=== PATIENT | female | born 1990 | race Caucasian/White ===

== ENCOUNTER 2022-09-09 11:28 | Emergency (ER) | payer MEDICAID ==
[~2022-09-09] VITALS: Ht 165.1 cm; Wt 77.3 kg
[~2022-09-09 11:28] MED LIST: FLO0.4C PO; HYT1T PO; IBUP-1986 PO; PANT-47 PO; ZOF4T PO
[2022-09-09 11:45] VITALS: BP 137/86
[2022-09-09] MEDS ORDERED: LORazepam 1 MG tablet PO ONE (15:15)
[2022-09-09] MEDS ORDERED: LORA-269 PO (15:22)
== END 2022-09-09 15:34 | disposition home or self-care (01) ==
LOC: ER 11:28
DX: F41.9 Anxiety disorder, unspecified (principal); G89.29 Other chronic pain; M54.9 Dorsalgia, unspecified; F12.10 Cannabis abuse, uncomplicated; Z87.442 Personal history of urinary calculi; Z90.49 Acquired absence of other specified parts of digestive tract; Z88.8 Allergy status to other drugs, medicaments and biological substances; Z79.899 Other long term (current) drug therapy; Z79.1 Long term (current) use of non-steroidal anti-inflammatories (NSAID); Z79.2 Long term (current) use of antibiotics
CPT/HCPCS: 82948; 99284

== ENCOUNTER 2022-11-01 20:06 | Emergency (ER) | payer MEDICAID ==
[~2022-11-01] VITALS: Ht 165.1 cm; Wt 77.4 kg
[~2022-11-01 20:06] MED LIST changes: +LORA-269 PO
[2022-11-01 20:51] VITALS: TEMP 98.7
[2022-11-01 21:36] LABS: BASOPHILS # (AUTO) 0.1 X10'3 (0-0.2); BASOPHILS % (AUTO) 1.7 % (0-1); EOSINOPHILS % (AUTO) 0.1 % (0-6); HEMATOCRIT 50.8 % (35.0-45.0); HEMOGLOBIN 17.3 g/dl (12.0-16.0); LYMPHOCYTES # (AUTO) 1.3 X10'3 (1.1-4.8); LYMPHOCYTES % (AUTO) 15.4 % (21-51); MEAN CORPUSCULAR HEMOGLOBIN 36.4 PG (27.0-31.0); MEAN CORPUSCULAR VOLUME 106.9 FL (78-98); MEAN PLATELET VOLUME 9.2 FL (7.4-10.4); MONOCYTES # (AUTO) 0.7 X10'3 (0-0.9); MONOCYTES % (AUTO) 7.7 % (2-12); NEUTROPHILS # (AUTO) 6.5 X10'3 (1.8-7.7); NEUTROPHILS % (AUTO) 75.1 % (42-75); PLATELET COUNT 254 X10'3 (140-440); RED BLOOD COUNT 4.75 X10'6 (4.20-5.60); RED CELL DISTRIBUTION WIDTH 15.5 % (11.5-14.5); WHITE BLOOD COUNT 8.7 X10'3 (4.5-11.0)
[2022-11-01 21:36] LABS: BILIRUBIN,URINE SMALL (Neg); CLARITY,URINE SLIGHTLY CLOUDY (Clear); GLUCOSE, URINE NEGATIVE (Neg); KETONES,URINE >=80 mg/dl (Neg); LEUKOCYTE ESTERASE ,URINE NEGATIVE (Neg); NITRITES, URINE NEGATIVE (Neg); OCCULT BLOOD,URINE MODERATE (Neg); PH,URINE 5.5 (4.8-8.0); PROTEIN,URINE TRACE mg/dl (Neg); UROBILINOGEN,URINE 0.2 E.U/dL (0.2-1.0)
[2022-11-01 21:40] LABS: COLOR,URINE DARK YELLOW (Yellow); UA COLLECTION TYPE CLN CATCH MIDSTREAM
[2022-11-01 21:43] LABS: ALANINE AMINOTRANSFERASE 90 U/L (12-78); ALBUMIN 4.2 G/DL (3.4-5.0); ALKALINE PHOSPHATASE 132 IU/L (46-116); ANION GAP 18 (8-16); ASPARTATE AMINO TRANSFERASE 159 U/L (10-37); BILIRUBIN,TOTAL 1.9 MG/DL (0.1-1.0); BLOOD UREA NITROGEN 6 MG/DL (7-18); BUN/CREATININE RATIO 6.2 (10.0-20.0); CALCIUM 10.3 MG/DL (8.5-10.1); CHLORIDE 94 MMOL/L (99-107); CREATININE 0.97 MG/DL (0.40-0.90); GLUCOSE 108 MG/DL (70-104); POTASSIUM 3.5 MMOL/L (3.5-5.1); SODIUM 137 MMOL/L (135-145); TOTAL CARBON DIOXIDE 24.6 MMOL/L (24-32); TOTAL PROTEIN 8.4 G/DL (6.4-8.2); eCRCL 75 ML/MIN; eGFR 67 ML/MIN
[2022-11-01 21:50] LABS: BACTERIA,URINE 4+ /HPF (Neg); SQUAMOUS EPITHELIAL CELL,UR MODERATE /LPF (FEW)
--- NOTE | 2022-11-02 00:25 | NUR ---
PT STATED SHE HAS BEEN WAITING IN HER CAR. EDUCATED BY REGISTRATION TO STAY IN LOBBY
[2022-11-02 02:14] LABS: URINE HCG NEGATIVE (NEG)
[2022-11-02 04:09] VITALS: BP 133/97; PULSE 121; RESP 18; O2SAT 99
[2022-11-02] MEDS ORDERED: famotidine/PF 10 mg/ml inj IV ONE (04:10)
[2022-11-02] MEDS ORDERED: ondansetron/PF 4mg/2ml inj IV ONE (04:10)
[2022-11-02] MEDS ORDERED: dextrose 5%-normal saline 1,000 ML IV SCH (04:10)
[2022-11-02] MEDS ORDERED: normal saline 1000ML IV soln IVB ONE (04:10)
[2022-11-02] MEDS ORDERED: pantoprazole 40mg IV 80 MG in normal saline 100ml IV soln 100 ML IV ONE (04:10)
[2022-11-02] MEDS ORDERED: thiamine 100mg/ml 2ml inj. IV ONE (04:10)
[2022-11-02 04:34] LABS: ETHANOL < 10 MG/DL (<10); LIPASE 305 U/L (73-393)
[2022-11-02] MEDS ORDERED: pantoprazole 40MG/NS 100ML BAG 100 ML IV ONE ×2 (04:35→04:50)
[2022-11-02] MEDS ORDERED: ONDA8TAB13 PO (05:07)
[2022-11-02] MEDS ORDERED: FAMO-128 PO (05:07)
== END 2022-11-02 06:09 | disposition home or self-care (01) ==
LOC: ER 20:07
DX: K29.20 Alcoholic gastritis without bleeding (principal); F10.10 Alcohol abuse, uncomplicated; G89.29 Other chronic pain; F12.90 Cannabis use, unspecified, uncomplicated; Z87.442 Personal history of urinary calculi; Z72.89 Other problems related to lifestyle; Z90.49 Acquired absence of other specified parts of digestive tract; Z88.8 Allergy status to other drugs, medicaments and biological substances; Z79.899 Other long term (current) drug therapy; Y90.0 Blood alcohol level of less than 20 mg/100 ml
CPT/HCPCS: 36415; 80053; 80320; 81001; 81025; 83690; 85025; 87077; 87088; 87186; 93005; 96361; 96365; 96375; 99284; C9113; J2405; J3411; J3490; J7030; J7042

== ENCOUNTER 2023-05-22 07:00 | Emergency (ER) | payer MEDICAID, OTHER ==
[~2023-05-22] VITALS: Ht 165.1 cm; Wt 77.9 kg
[~2023-05-22 07:00] MED LIST changes: +FAMO-128 PO; +ONDA8TAB13 PO
[2023-05-22 07:53] LABS: ALANINE AMINOTRANSFERASE 43 U/L (12-78); ALBUMIN 4.1 G/DL (3.4-5.0); ALKALINE PHOSPHATASE 105 IU/L (46-116); AMYLASE 26 U/L (25-115); ANION GAP 20 (8-16); ASPARTATE AMINO TRANSFERASE 69 U/L (10-37); BASOPHILS # (AUTO) 0.1 X10'3 (0-0.2); BILIRUBIN,TOTAL 1.4 MG/DL (0.1-1.0); BLOOD UREA NITROGEN 13 MG/DL (7-18); BUN/CREATININE RATIO 14.3 (10.0-20.0); CALCIUM 10.1 MG/DL (8.5-10.1); CHLORIDE 95 MMOL/L (99-107); CREATININE 0.91 MG/DL (0.40-0.90); GLUCOSE 120 MG/DL (70-104); LIPASE 127 U/L (16-77); MEAN CORPUSCULAR HGB CONC 34.8 g/dL (33.0-36.5); POTASSIUM 3.7 MMOL/L (3.5-5.1); SODIUM 136 MMOL/L (135-145); TOTAL CARBON DIOXIDE 20.7 MMOL/L (24-32); TOTAL PROTEIN 8.2 G/DL (6.4-8.2); eCRCL 80 ML/MIN; eGFR 72 ML/MIN
[2023-05-22 07:55] LABS: EOSINOPHILS % (AUTO) 0.3 % (0-6); HEMATOCRIT 46.2 % (35.0-45.0); HEMOGLOBIN 16.1 g/dl (12.0-16.0); LYMPHOCYTES # (AUTO) 1.9 X10'3 (1.1-4.8); LYMPHOCYTES % (AUTO) 24.4 % (21-51); MEAN CORPUSCULAR VOLUME 103.3 FL (78-98); MEAN PLATELET VOLUME 9.5 FL (7.4-10.4); MONOCYTES # (AUTO) 0.9 X10'3 (0-0.9); MONOCYTES % (AUTO) 12.4 % (2-12); NEUTROPHILS # (AUTO) 4.7 X10'3 (1.8-7.7); NEUTROPHILS % (AUTO) 61.9 % (42-75); PLATELET COUNT 208 X10'3 (140-440); RED BLOOD COUNT 4.47 X10'6 (4.20-5.60); RED CELL DISTRIBUTION WIDTH 13.3 % (11.5-14.5); WHITE BLOOD COUNT 7.6 X10'3 (4.5-11.0)
[2023-05-22 08:12] LABS: URINE HCG NEGATIVE (NEG)
[2023-05-22 08:24] LABS: BILIRUBIN,URINE MODERATE (Neg); CLARITY,URINE CLOUDY (Clear); COLOR,URINE YELLOW (Yellow); GLUCOSE, URINE NEGATIVE (Neg); KETONES,URINE >=80 mg/dl (Neg); LEUKOCYTE ESTERASE ,URINE NEGATIVE (Neg); NITRITES, URINE NEGATIVE (Neg); OCCULT BLOOD,URINE NEGATIVE (Neg); PH,URINE 5.5 (4.8-8.0); PROTEIN,URINE 30 mg/dl (Neg)
[2023-05-22 08:53] LABS: UA COLLECTION TYPE CLN CATCH MIDSTREAM
[2023-05-22 08:54] LABS: SQUAMOUS EPITHELIAL CELL,UR MANY /LPF (FEW)
[2023-05-22 08:58] LABS: CAL OXALATE CRYSTALS 3+ /HPF (NEGATIVE); HYALINE CASTS 0-3 /LPF (NEGATIVE)
[2023-05-22 08:59] LABS: BACTERIA,URINE FEW /HPF (Neg); MUCUS STRANDS MANY /LPF (Neg); RBC,URINE NONE SEEN /HPF (0-2)
[2023-05-22] MEDS: normal saline 1000ml 1,000 ML IV SCH (09:42)
[2023-05-22] MEDS: pantoprazole 40MG/NS 100ML BAG 100 ML IV SCH (09:44)
[2023-05-22] MEDS: LORazepam 2 mg/ml vial IV ONE (09:44)
[2023-05-22 09:48] LABS: MAGNESIUM 1.8 MG/DL (1.5-2.4)
[2023-05-22 09:53] LABS: ETHANOL < 10 MG/DL (<10)
[2023-05-22] MEDS: morphine 4 MG/ML inj SYRINge IV ONE ×2 (10:00→12:25)
[2023-05-22 11:03] LABS: URINE AMPHETAMINE SCREEN NEGATIVE (Neg); URINE BARBITUATE SCREEN NEGATIVE (Neg); URINE BENZODIAZEPINES SCREEN NEGATIVE (Neg); URINE CANNABINOID SCREEN NEGATIVE (Neg); URINE COCAINE SCREEN NEGATIVE (Neg); URINE METHADONE SCREEN NEGATIVE (Neg); URINE OPIATE SCREEN POSITIVE (Neg); URINE PHENCYCLIDINE SCREEN NEGATIVE (Neg)
[2023-05-22] MEDS ORDERED: ONDA4TAB12 PO (12:27)
[2023-05-22] MEDS: normal saline 1000ml 1,000 ML IV ONE (13:02)
[2023-05-22 13:46] VITALS: BP 127/89; PULSE 90; RESP 16; TEMP 98.3; O2SAT 99
== END 2023-05-22 13:54 | disposition home or self-care (01) ==
LOC: ER 07:00
DX: K29.20 Alcoholic gastritis without bleeding (principal); F12.90 Cannabis use, unspecified, uncomplicated; Z88.8 Allergy status to other drugs, medicaments and biological substances; Z79.899 Other long term (current) drug therapy; Z79.1 Long term (current) use of non-steroidal anti-inflammatories (NSAID); Z98.890 Other specified postprocedural states
CPT/HCPCS: 36415; 80053; 80305; 80320; 81001; 81025; 82150; 83605; 83690; 83735; 85025; 96361; 96374; 96375; 99284; C9113; J2060; J2270; J7030

== ENCOUNTER 2023-08-09 06:27 | Inpatient (IN) | payer MEDICAID, OTHER ==
[~2023-08-09] VITALS: Ht 166.4 cm; Wt 86.7 kg
[~2023-08-09 06:27] MED LIST changes: +ONDA4TAB12 PO
[2023-08-09 06:50] LABS: BILIRUBIN,URINE NEGATIVE (Neg); CLARITY,URINE CLOUDY (Clear); COLOR,URINE YELLOW (Yellow); GLUCOSE, URINE NEGATIVE (Neg); KETONES,URINE >=80 mg/dl (Neg); LEUKOCYTE ESTERASE ,URINE NEGATIVE (Neg); NITRITES, URINE NEGATIVE (Neg); OCCULT BLOOD,URINE TRACE-INTACT (Neg); PH,URINE 5.5 (4.8-8.0); PROTEIN,URINE NEGATIVE (Neg); UROBILINOGEN,URINE 0.2 E.U/dL (0.2-1.0)
[2023-08-09 06:52] LABS: UA COLLECTION TYPE CLN CATCH MIDSTREAM
[2023-08-09 07:00] LABS: BACTERIA,URINE 1+ /HPF (Neg); MUCUS STRANDS NONE SEEN /LPF (Neg); RBC,URINE 0-2 /HPF (0-2); SQUAMOUS EPITHELIAL CELL,UR MANY /LPF (FEW); WBC,URINE 0-4 /HPF (0-4)
[2023-08-09 07:01] LABS: URINE HCG NEGATIVE (NEG)
[2023-08-09] MEDS: normal saline 1000ml 1,000 ML IV ONE (07:26)
[2023-08-09] MEDS: morphine 2 MG/ML inj. syringe IV ONE ×2 (07:34→09:06)
[2023-08-09] MEDS: ondansetron/PF 4mg/2ml inj IV ONE (07:34)
[2023-08-09] MEDS: pantoprazole 40 MG vial IV ONE (07:41)
[2023-08-09 07:51] LABS: BASOPHILS # (AUTO) 0.1 X10'3 (0-0.2); BASOPHILS % (AUTO) 0.6 % (0-1); EOSINOPHILS # (AUTO) 0.1 X10'3 (0-0.9); HEMATOCRIT 46.8 % (35.0-45.0); HEMOGLOBIN 15.8 g/dl (12.0-16.0); LYMPHOCYTES % (AUTO) 15.7 % (21-51); MEAN CORPUSCULAR HEMOGLOBIN 35.5 PG (27.0-31.0); MEAN CORPUSCULAR HGB CONC 33.8 g/dL (33.0-36.5); MEAN CORPUSCULAR VOLUME 104.8 FL (78-98); MEAN PLATELET VOLUME 9.4 FL (7.4-10.4); MONOCYTES % (AUTO) 7.9 % (2-12); NEUTROPHILS # (AUTO) 9.3 X10'3 (1.8-7.7); NEUTROPHILS % (AUTO) 74.8 % (42-75); PLATELET COUNT 249 X10'3 (140-440); RED BLOOD COUNT 4.46 X10'6 (4.20-5.60); RED CELL DISTRIBUTION WIDTH 13.8 % (11.5-14.5); WHITE BLOOD COUNT 12.5 X10'3 (4.5-11.0)
[2023-08-09] MEDS: LORazepam 1 MG tablet PO ONE (08:35)
[2023-08-09 08:54] LABS: ALANINE AMINOTRANSFERASE 30 U/L (12-78); ALBUMIN 3.4 G/DL (3.4-5.0); ALBUMIN/GLOBULIN RATIO 0.9 (1.1-1.5); ALKALINE PHOSPHATASE 98 IU/L (46-116); ANION GAP 12 (8-16); ASPARTATE AMINO TRANSFERASE 25 U/L (10-37); BILIRUBIN,TOTAL 1.2 MG/DL (0.1-1.0); BLOOD UREA NITROGEN 7 MG/DL (7-18); BUN/CREATININE RATIO 10.3 (10.0-20.0); CALCIUM 8.4 MG/DL (8.5-10.1); CHLORIDE 100 MMOL/L (99-107); CREATININE 0.68 MG/DL (0.40-0.90); GLUCOSE 90 MG/DL (70-104); POTASSIUM 4.5 MMOL/L (3.5-5.1); SODIUM 135 MMOL/L (135-145); TOTAL CARBON DIOXIDE 22.8 MMOL/L (24-32); TOTAL PROTEIN 7.1 G/DL (6.4-8.2); eCRCL 107 ML/MIN; eGFR > 90 ML/MIN
[2023-08-09 09:16] LABS: LIPASE > 375 U/L (16-77)
[2023-08-09] MEDS ORDERED: acetaminophen 325mg tablet PO PRN (10:00)
[2023-08-09] MEDS ORDERED: magnesium 4gm in 100ml NS 100 ML IV PRN (10:00)
[2023-08-09] MEDS ORDERED: magnesium 2GM in 50ml NS 50 ML IV PRN (10:00)
[2023-08-09] MEDS ORDERED: potassium Cl 40MEQ/1/2NS 520ml 520 ML IV PRN (10:00)
[2023-08-09] MEDS: normal saline 1000ml 1,000 ML IV SCH ×2 (10:00→10:32)
[2023-08-09] MEDS ORDERED: magnesium Cl slow-release 64mg tablet PO PRN (10:00)
[2023-08-09] MEDS ORDERED: mag hydrox/Alum hydrox/simeth 30ml oral suspension PO PRN (10:00)
[2023-08-09] MEDS ORDERED: potassium Cl 20 mEq SR tablet PO PRN ×2 (10:00)
[2023-08-09] MEDS: ondansetron/PF 4mg/2ml inj IV PRN (10:38)
[2023-08-09] MEDS ORDERED: haloperidol lactate 5mg/ml inj IM PRN (12:15)
[2023-08-09] MEDS: metoclopramide 5 mg/ml inj IV ONE (12:21)
[2023-08-09] MEDS: morphine 2 MG/ML inj. syringe IV PRN (12:53)
[2023-08-09] MEDS: thiamine 100mg/ml 2ml inj. IV ONE (12:54)
[2023-08-09 13:15] VITALS: BP 153/100; PULSE 87; RESP 22; TEMP 97.7; O2SAT 97
[2023-08-09] MEDS: HYDROcodone/acetaminophen 10/325mg tab PO PRN (14:37)
[2023-08-09] MEDS ORDERED: iohexol 300mg/ml 100ml inj. ONE (15:43)
[2023-08-09] MEDS: proCHLORperazine 10 MG/2 ml inj IV ONE (16:18)
[2023-08-09] MEDS ORDERED: PROP10TA10 PO (17:00)
[2023-08-09] MEDS: LORazepam 1 MG tablet PO PRN (17:28)
[2023-08-09] MEDS: HYDROmorphone 1 mg/ml syringe IV ONE (17:29)
[2023-08-09 18:00] VITALS: BP 173/105; PULSE 80; RESP 18; TEMP 98.6; O2SAT 98
[2023-08-09] MEDS ORDERED: cefepime 2g/NS 100ml ADVANTAGE 100 ML IV SCH (18:10)
[2023-08-09] MEDS ORDERED: piperacillin/tazobactam inj. 3.375 GM in NS 50ml IV SCH (19:00)
[2023-08-09 20:00] VITALS: RESP 18; O2SAT 98
[2023-08-09] MEDS ORDERED: metroNIDAZOLE-Flagyl 500mg/NS 100 ML IV SCH (20:00)
[2023-08-09] MEDS: K and/or MAG REPLACEMENT MC SCH (20:00)
[2023-08-09 22:00] VITALS: BP 156/104; PULSE 96; RESP 16; TEMP 97.5; O2SAT 99
[2023-08-09] MEDS ORDERED: proCHLORperazine 10 MG/2 ml inj IV PRN (22:10)
[2023-08-09] MEDS: HYDROmorphone 1 mg/ml syringe IV PRN (22:36)
[2023-08-09] MEDS: pantoprazole 40 MG vial IV SCH (23:00)
[2023-08-10] MEDS: piperacillin/tazobactam inj. 3.375 GM in NS 50ml IV SCH (03:47)
[2023-08-10 06:00] VITALS: BP 113/72; PULSE 103; RESP 16; TEMP 98.1; O2SAT 96
[2023-08-10 06:51] LABS: BASOPHILS # (AUTO) 0.1 X10'3 (0-0.2); BASOPHILS % (AUTO) 0.5 % (0-1); EOSINOPHILS % (AUTO) 0.2 % (0-6); HEMATOCRIT 40.8 % (35.0-45.0); HEMOGLOBIN 13.8 g/dl (12.0-16.0); LYMPHOCYTES # (AUTO) 1.1 X10'3 (1.1-4.8); LYMPHOCYTES % (AUTO) 9.8 % (21-51); MEAN CORPUSCULAR HEMOGLOBIN 35.4 PG (27.0-31.0); MEAN CORPUSCULAR HGB CONC 33.8 g/dL (33.0-36.5); MEAN CORPUSCULAR VOLUME 104.7 FL (78-98); MEAN PLATELET VOLUME 8.7 FL (7.4-10.4); MONOCYTES % (AUTO) 8.6 % (2-12); NEUTROPHILS # (AUTO) 9.3 X10'3 (1.8-7.7); NEUTROPHILS % (AUTO) 80.9 % (42-75); PLATELET COUNT 172 X10'3 (140-440); RED BLOOD COUNT 3.89 X10'6 (4.20-5.60); RED CELL DISTRIBUTION WIDTH 13.6 % (11.5-14.5); WHITE BLOOD COUNT 11.5 X10'3 (4.5-11.0)
[2023-08-10 07:00] LABS: INR 1.1 INR; PROTHROMBIN TIME 11.3 SECONDS (9.0-12.0)
[2023-08-10 07:12] LABS: ALBUMIN 2.9 G/DL (3.4-5.0); AMYLASE 42 U/L (25-115); ANION GAP 12 (8-16); BLOOD UREA NITROGEN 4 MG/DL (7-18); BUN/CREATININE RATIO 6.5 (10.0-20.0); CALCIUM 8.1 MG/DL (8.5-10.1); CHLORIDE 102 MMOL/L (99-107); CHOL/HDL RATIO 1.6 (0.00-4.99); CHOLESTEROL 143 MG/DL (0-200); CREATININE 0.62 MG/DL (0.40-0.90); GLUCOSE 106 MG/DL (70-104); HDL CHOLESTEROL 87 MG/DL (35-60); LDL CHOLESTEROL 45 MG/DL (50-100); LIPASE 170 U/L (16-77); MAGNESIUM 1.7 MG/DL (1.5-2.4); PHOSPHORUS 2.2 MG/DL (2.3-4.5); POTASSIUM 3.9 MMOL/L (3.5-5.1); SODIUM 134 MMOL/L (135-145); TOTAL CARBON DIOXIDE 20.5 MMOL/L (24-32); TRIGLYCERIDES 87 MG/DL (20-135); eCRCL 120 ML/MIN; eGFR > 90 ML/MIN
[2023-08-10] MEDS: multivitamins, therapeutics tablet PO SCH (09:34)
[2023-08-10] MEDS: thiamine 100mg tablet PO SCH (09:34)
[2023-08-10] MEDS: folic acid 1mg tablet PO SCH (09:35)
[2023-08-10] MEDS: enoxaparin 40mg/0.4ml syringe SUBCUT SCH (09:36)
[2023-08-10 10:11] LABS: URINE AMPHETAMINE SCREEN NEGATIVE (Neg); URINE BARBITUATE SCREEN NEGATIVE (Neg); URINE BENZODIAZEPINES SCREEN NEGATIVE (Neg); URINE CANNABINOID SCREEN NEGATIVE (Neg); URINE COCAINE SCREEN NEGATIVE (Neg); URINE METHADONE SCREEN NEGATIVE (Neg); URINE OPIATE SCREEN POSITIVE (Neg); URINE PHENCYCLIDINE SCREEN NEGATIVE (Neg)
[2023-08-10 11:00] VITALS: BP 146/99; PULSE 100; RESP 16; TEMP 97.6; O2SAT 99
[2023-08-10] MEDS ORDERED: HYDR-3965 PO (12:01)
[2023-08-10] MEDS ORDERED: MULT-1133 PO (14:12)
[2023-08-10] MEDS ORDERED: PANT-47 PO (14:12)
[2023-08-10] MEDS ORDERED: LACT1CAP26 PO (14:12)
[2023-08-13] MEDS ORDERED: thiamine 100mg tablet PO SCH (08:00)
[2023-08-13] MEDS ORDERED: LORazepam 1 MG tablet PO PRN (12:15)
[2023-08-14] MEDS ORDERED: folic acid 1mg tablet PO SCH (08:00)
== END 2023-08-10 16:00 | disposition home or self-care (01) | DRG 241 ==
LOC: ER 06:28 → ED HOLD 10:00 → ORTHO 4S 13:10
PROVIDERS: ADMIT Internal Medicine; ATTEND Internal Medicine
DX: K29.20 Alcoholic gastritis without bleeding (principal); K85.21 Alcohol induced acute pancreatitis with uninfected necrosis; F10.20 Alcohol dependence, uncomplicated; F12.90 Cannabis use, unspecified, uncomplicated; F41.9 Anxiety disorder, unspecified; G89.29 Other chronic pain; M54.9 Dorsalgia, unspecified; Z79.899 Other long term (current) drug therapy; Z88.8 Allergy status to other drugs, medicaments and biological substances; Z88.1 Allergy status to other antibiotic agents; Z90.49 Acquired absence of other specified parts of digestive tract
CPT/HCPCS: 36415; 74177; 80048; 80053; 80061; 80305; 81001; 81025; 82150; 83605; 83690; 83735; 84100; 84145; 85025; 85610; 87040; 87081; 96374; 96375; 99285; C9113; G0378; J0780; J1170; J1650; J2270; J2405; J2543; J2765; J3411; J3490; J7030; Q9967

== ENCOUNTER 2023-10-13 18:38 | Inpatient (IN) | payer MEDICAID ==
[~2023-10-13] VITALS: Ht 165.1 cm; Wt 90.0 kg
[2023-10-13] MEDS: folic acid 1mg/0.2ml inj IV ONE ×2 (08:10→21:34)
[~2023-10-13 18:38] MED LIST changes: -FAMO-128 PO; -FLO0.4C PO; -HYT1T PO; -IBUP-1986 PO; +LACT1CAP26 PO; -LORA-269 PO; +MULT-1133 PO; -ONDA4TAB12 PO; -ONDA8TAB13 PO; +PROP10TA10 PO; -ZOF4T PO
[2023-10-13] MEDS: ondansetron/PF 4mg/2ml inj IV ONE (19:50)
[2023-10-13 19:51] LABS: BASOPHILS # (AUTO) 0.1 X10'3 (0-0.2); BASOPHILS % (AUTO) 0.6 % (0-1); EOSINOPHILS # (AUTO) 0.1 X10'3 (0-0.9); EOSINOPHILS % (AUTO) 0.6 % (0-6); HEMATOCRIT 45.5 % (35.0-45.0); HEMOGLOBIN 15.5 g/dl (12.0-16.0); LYMPHOCYTES # (AUTO) 1.5 X10'3 (1.1-4.8); LYMPHOCYTES % (AUTO) 12.9 % (21-51); MEAN CORPUSCULAR HEMOGLOBIN 34.4 PG (27.0-31.0); MEAN PLATELET VOLUME 8.8 FL (7.4-10.4); MONOCYTES # (AUTO) 0.7 X10'3 (0-0.9); MONOCYTES % (AUTO) 5.9 % (2-12); NEUTROPHILS # (AUTO) 9.2 X10'3 (1.8-7.7); PLATELET COUNT 237 X10'3 (140-440); RED BLOOD COUNT 4.51 X10'6 (4.20-5.60); RED CELL DISTRIBUTION WIDTH 13.8 % (11.5-14.5); WHITE BLOOD COUNT 11.5 X10'3 (4.5-11.0)
[2023-10-13] MEDS: morphine 2 MG/ML inj. syringe IV ONE (19:51)
[2023-10-13] MEDS: normal saline 1000ML IV soln IVB ONE (19:53)
[2023-10-13 20:04] LABS: BILIRUBIN,URINE SMALL (Neg); CLARITY,URINE SLIGHTLY CLOUDY (Clear); COLOR,URINE YELLOW (Yellow); GLUCOSE, URINE NEGATIVE (Neg); KETONES,URINE >=80 mg/dl (Neg); LEUKOCYTE ESTERASE ,URINE NEGATIVE (Neg); NITRITES, URINE NEGATIVE (Neg); OCCULT BLOOD,URINE MODERATE (Neg); PROTEIN,URINE NEGATIVE (Neg); UROBILINOGEN,URINE 0.2 E.U/dL (0.2-1.0)
[2023-10-13 20:07] LABS: ALANINE AMINOTRANSFERASE 42 U/L (12-78); ALBUMIN 3.9 G/DL (3.4-5.0); ALKALINE PHOSPHATASE 115 IU/L (46-116); ANION GAP 14 (8-16); ASPARTATE AMINO TRANSFERASE 78 U/L (10-37); BILIRUBIN,TOTAL 1.5 MG/DL (0.1-1.0); BLOOD UREA NITROGEN 8 MG/DL (7-18); CALCIUM 8.8 MG/DL (8.5-10.1); CHLORIDE 100 MMOL/L (99-107); CREATININE 0.73 MG/DL (0.40-0.90); GLUCOSE 101 MG/DL (70-104); LIPASE 308 U/L (16-77); POTASSIUM 3.6 MMOL/L (3.5-5.1); SODIUM 136 MMOL/L (135-145); TOTAL CARBON DIOXIDE 21.7 MMOL/L (24-32); TOTAL PROTEIN 7.7 G/DL (6.4-8.2); eCRCL 100 ML/MIN; eGFR > 90 ML/MIN
[2023-10-13 20:11] LABS: URINE HCG NEGATIVE (NEG)
[2023-10-13] MEDS: LORazepam 2 mg/ml vial IV ONE (20:22)
[2023-10-13 20:26] LABS: UA COLLECTION TYPE VOIDED
[2023-10-13 20:33] LABS: WBC,URINE 0-4 /HPF (0-4)
[2023-10-13 20:34] LABS: BACTERIA,URINE FEW /HPF (Neg); SQUAMOUS EPITHELIAL CELL,UR FEW /LPF (FEW)
[2023-10-13] MEDS ORDERED: acetaminophen 325mg tablet PO PRN ×2 (21:00)
[2023-10-13] MEDS ORDERED: magnesium Cl slow-release 64mg tablet PO PRN (21:00)
[2023-10-13] MEDS ORDERED: potassium Cl 20 mEq SR tablet PO PRN ×2 (21:00)
[2023-10-13] MEDS ORDERED: HYDROcodone/acetaminophen 5mg/325mg tablet PO PRN (21:00)
[2023-10-13] MEDS ORDERED: magnesium sulf-water 4G/100mL 100 ML IV PRN (21:00)
[2023-10-13] MEDS ORDERED: mag hydrox/Alum hydrox/simeth 30ml oral suspension PO PRN (21:00)
[2023-10-13] MEDS ORDERED: haloperidol 5mg tablet PO PRN (21:10)
[2023-10-13] MEDS: HYDROcodone/acetaminophen 10/325mg tab PO PRN (21:30)
[2023-10-13] MEDS: normal saline 1000ml 1,000 ML IV SCH (21:36)
[2023-10-13] MEDS: pantoprazole 40 MG vial IV SCH (21:43)
[2023-10-13] MEDS: pantoprazole 40 MG vial IV ONE (21:45)
[2023-10-13] MEDS ORDERED: iohexol 300mg/ml 100ml inj. ONE (21:51)
[2023-10-13] MEDS ORDERED: FOLI0.4T14 PO (22:36)
[2023-10-14] MEDS: morphine 2 MG/ML inj. syringe IV PRN (00:53)
[2023-10-14] MEDS: ondansetron/PF 4mg/2ml inj IV PRN (00:54)
[2023-10-14 02:55] LABS: BASOPHILS % (AUTO) 0.5 % (0-1); EOSINOPHILS # (AUTO) 0.1 X10'3 (0-0.9); HEMATOCRIT 39.1 % (35.0-45.0); HEMOGLOBIN 13.2 g/dl (12.0-16.0); LYMPHOCYTES # (AUTO) 1.5 X10'3 (1.1-4.8); MEAN CORPUSCULAR HEMOGLOBIN 34.3 PG (27.0-31.0); MEAN CORPUSCULAR HGB CONC 33.8 g/dL (33.0-36.5); MEAN CORPUSCULAR VOLUME 101.3 FL (78-98); MEAN PLATELET VOLUME 8.8 FL (7.4-10.4); MONOCYTES # (AUTO) 0.6 X10'3 (0-0.9); MONOCYTES % (AUTO) 8.6 % (2-12); NEUTROPHILS # (AUTO) 5.1 X10'3 (1.8-7.7); NEUTROPHILS % (AUTO) 68.9 % (42-75); PLATELET COUNT 172 X10'3 (140-440); RED BLOOD COUNT 3.85 X10'6 (4.20-5.60); RED CELL DISTRIBUTION WIDTH 13.9 % (11.5-14.5); WHITE BLOOD COUNT 7.4 X10'3 (4.5-11.0)
[2023-10-14 03:04] LABS: INR 1.1 INR; PROTHROMBIN TIME 11.6 SECONDS (9.0-12.0)
[2023-10-14 03:12] LABS: ALANINE AMINOTRANSFERASE 32 U/L (12-78); ALBUMIN 3.1 G/DL (3.4-5.0); ALKALINE PHOSPHATASE 90 IU/L (46-116); AMYLASE 62 U/L (25-115); ANION GAP 10 (8-16); ASPARTATE AMINO TRANSFERASE 49 U/L (10-37); BILIRUBIN,TOTAL 1.5 MG/DL (0.1-1.0); BLOOD UREA NITROGEN 7 MG/DL (7-18); BUN/CREATININE RATIO 10.6 (10.0-20.0); CHLORIDE 103 MMOL/L (99-107); CHOL/HDL RATIO 1.6 (0.00-4.99); CHOLESTEROL 170 MG/DL (0-200); CREATININE 0.66 MG/DL (0.40-0.90); GLUCOSE 111 MG/DL (70-104); HDL CHOLESTEROL 107 MG/DL (35-60); LDL CHOLESTEROL 46 MG/DL (50-100); LIPASE 357 U/L (16-77); MAGNESIUM 1.3 MG/DL (1.5-2.4); PHOSPHORUS 3.3 MG/DL (2.3-4.5); POTASSIUM 3.5 MMOL/L (3.5-5.1); SODIUM 136 MMOL/L (135-145); TOTAL CARBON DIOXIDE 23.2 MMOL/L (24-32); TOTAL PROTEIN 6.2 G/DL (6.4-8.2); TRIGLYCERIDES 46 MG/DL (20-135); eCRCL 110 ML/MIN; eGFR > 90 ML/MIN
[2023-10-14] MEDS: HYDROmorphone inj. 0.5 MG/0.5 ML DISP.SYRIN IM ONE (04:01)
[2023-10-14] MEDS: HYDROmorphone inj. 0.5 MG/0.5 ML DISP.SYRIN IV ONE ×2 (04:03→05:53)
[2023-10-14] MEDS: K and/or MAG REPLACEMENT MC SCH (08:00)
[2023-10-14] MEDS: HYDROmorphone inj. 0.5 MG/0.5 ML DISP.SYRIN IV PRN (08:38)
[2023-10-14] MEDS: LORazepam 1 MG tablet PO PRN (08:38)
[2023-10-14] MEDS ORDERED: PANT40TA54 PO (08:59)
[2023-10-14] MEDS: thiamine 100mg/ml 2ml inj. IV ONE (09:45)
[2023-10-14] MEDS ORDERED: pantoprazole 40 MG vial IV ONE (09:45)
[2023-10-14] MEDS: thiamine 100mg/ml 2ml inj. IV SCH (10:01)
[2023-10-14] MEDS: folic acid 1mg/0.2ml inj IV SCH (10:05)
[2023-10-14] MEDS: magnesium sulf-water 2g/50mL 50 ML IV PRN (10:47)
[2023-10-14 17:45] VITALS: RESP 16
[2023-10-14] MEDS: dextrose 5%-normal saline 1,000 ML IV SCH (17:55)
[2023-10-14 18:00] VITALS: BP 154/106; PULSE 97; RESP 16; TEMP 97.1; O2SAT 99
[2023-10-14] MEDS ORDERED: LORazepam 2 mg/ml vial IV PRN (20:30)
[2023-10-14 22:00] VITALS: BP 157/101; PULSE 115; RESP 15; TEMP 98.5; O2SAT 100
[2023-10-15 06:00] VITALS: BP 144/96; PULSE 85; RESP 16; TEMP 97.6; O2SAT 99
[2023-10-15 07:36] LABS: BASOPHILS % (AUTO) 0.2 % (0-1); EOSINOPHILS % (AUTO) 0.3 % (0-6); HEMATOCRIT 40.4 % (35.0-45.0); HEMOGLOBIN 13.5 g/dl (12.0-16.0); LYMPHOCYTES # (AUTO) 0.9 X10'3 (1.1-4.8); LYMPHOCYTES % (AUTO) 12.3 % (21-51); MEAN CORPUSCULAR HEMOGLOBIN 34.4 PG (27.0-31.0); MEAN CORPUSCULAR HGB CONC 33.5 g/dL (33.0-36.5); MEAN CORPUSCULAR VOLUME 102.5 FL (78-98); MEAN PLATELET VOLUME 9.4 FL (7.4-10.4); MONOCYTES # (AUTO) 0.7 X10'3 (0-0.9); MONOCYTES % (AUTO) 9.7 % (2-12); NEUTROPHILS # (AUTO) 5.9 X10'3 (1.8-7.7); NEUTROPHILS % (AUTO) 77.5 % (42-75); PLATELET COUNT 167 X10'3 (140-440); RED BLOOD COUNT 3.94 X10'6 (4.20-5.60); WHITE BLOOD COUNT 7.7 X10'3 (4.5-11.0)
[2023-10-15 07:47] LABS: INR 1.1 INR; PROTHROMBIN TIME 11.7 SECONDS (9.0-12.0)
[2023-10-15 07:52] LABS: ALANINE AMINOTRANSFERASE 24 U/L (12-78); ALBUMIN/GLOBULIN RATIO 0.9 (1.1-1.5); ALKALINE PHOSPHATASE 82 IU/L (46-116); AMYLASE 37 U/L (25-115); ANION GAP 10 (8-16); ASPARTATE AMINO TRANSFERASE 24 U/L (10-37); BILIRUBIN,TOTAL 1.1 MG/DL (0.1-1.0); BLOOD UREA NITROGEN 2 MG/DL (7-18); BUN/CREATININE RATIO 3.3 (10.0-20.0); CALCIUM 8.4 MG/DL (8.5-10.1); CHLORIDE 102 MMOL/L (99-107); GLUCOSE 129 MG/DL (70-104); LIPASE 146 U/L (16-77); MAGNESIUM 1.7 MG/DL (1.5-2.4); PHOSPHORUS 2.4 MG/DL (2.3-4.5); POTASSIUM 3.4 MMOL/L (3.5-5.1); SODIUM 135 MMOL/L (135-145); TOTAL PROTEIN 6.5 G/DL (6.4-8.2); eCRCL 120 ML/MIN; eGFR > 90 ML/MIN
[2023-10-15 08:00] VITALS: RESP 16; O2SAT 99
[2023-10-15] MEDS ORDERED: MVI, adult No.4 with vit. K 10 ML in dextrose 5% water 500ml 500 ML IV SCH (08:00)
[2023-10-15] MEDS ORDERED: propranolol 10mg tablet PO PRN (08:25)
[2023-10-15] MEDS: potassium Cl 40MEQ/1/2NS 520ml 520 ML IV PRN (09:14)
[2023-10-15 10:00] VITALS: BP 145/99; PULSE 94; RESP 15; TEMP 97.7; O2SAT 98
[2023-10-15] MEDS ORDERED: THIA100T70 PO (12:52)
[2023-10-15] MEDS ORDERED: enoxaparin 40mg/0.4ml syringe SUBCUT SCH (20:00)
== END 2023-10-15 14:30 | disposition home or self-care (01) | DRG 282 ==
LOC: ER 18:39 → ED HOLD 21:03 → ORTHO 4S 10-14 11:02
PROVIDERS: ADMIT Student in an Organized Health Care Education/Training Program; ATTEND Family Medicine
PROC: BW2110Z Computerized Tomography (CT Scan) of Abdomen and Pelvis using Low Osmolar Contrast, Unenhanced and Enhanced (ICD-10-PCS; principal; 2023-10-13)
DX: K85.20 Alcohol induced acute pancreatitis without necrosis or infection (principal); F10.90 Alcohol use, unspecified, uncomplicated; F41.9 Anxiety disorder, unspecified; K29.20 Alcoholic gastritis without bleeding; Y90.9 Presence of alcohol in blood, level not specified; G89.29 Other chronic pain; M54.9 Dorsalgia, unspecified; Z87.442 Personal history of urinary calculi; Z90.49 Acquired absence of other specified parts of digestive tract; Z79.899 Other long term (current) drug therapy; Z88.1 Allergy status to other antibiotic agents; Z72.0 Tobacco use; Z71.6 Tobacco abuse counseling
CPT/HCPCS: 36415; 74177; 80053; 80061; 81001; 81025; 82150; 83690; 83735; 84100; 85025; 85610; 87040; 87081; 99285; G0378; J1170; J2060; J2270; J2405; J2470; J3411; J3480; J3490; J7030; J7042; Q9967

== ENCOUNTER 2023-12-14 03:18 | Emergency (ER) | payer MEDICAID ==
[~2023-12-14] VITALS: Ht 165.1 cm; Wt 92.7 kg
[~2023-12-14 03:18] MED LIST changes: +FOLI0.4T14 PO; -LACT1CAP26 PO; +PANT40TA54 PO; +THIA100T70 PO
[2023-12-14 03:19] VITALS: TEMP 98.6
[2023-12-14 03:48] LABS: URINE HCG POSITIVE (NEG)
[2023-12-14 04:03] LABS: BILIRUBIN,URINE NEGATIVE (Neg); CLARITY,URINE SLIGHTLY CLOUDY (Clear); COLOR,URINE AMBER (Yellow); GLUCOSE, URINE NEGATIVE (Neg); KETONES,URINE 15 mg/dl (Neg); LEUKOCYTE ESTERASE ,URINE NEGATIVE (Neg); NITRITES, URINE NEGATIVE (Neg); OCCULT BLOOD,URINE SMALL (Neg); PROTEIN,URINE NEGATIVE (Neg); UROBILINOGEN,URINE 0.2 E.U/dL (0.2-1.0)
[2023-12-14 04:08] LABS: ALANINE AMINOTRANSFERASE 38 U/L (12-78); ALBUMIN 3.6 G/DL (3.4-5.0); ALBUMIN/GLOBULIN RATIO 0.9 (1.1-1.5); ALKALINE PHOSPHATASE 116 IU/L (46-116); ANION GAP 14 (8-16); ASPARTATE AMINO TRANSFERASE 97 U/L (10-37); BILIRUBIN,TOTAL 0.9 MG/DL (0.1-1.0); BLOOD UREA NITROGEN 5 MG/DL (7-18); BUN/CREATININE RATIO 6.8 (10.0-20.0); CHLORIDE 102 MMOL/L (99-107); CREATININE 0.73 MG/DL (0.40-0.90); GLUCOSE 123 MG/DL (70-104); LIPASE 100 U/L (16-77); POTASSIUM 4.2 MMOL/L (3.5-5.1); SODIUM 137 MMOL/L (135-145); TOTAL CARBON DIOXIDE 21.3 MMOL/L (24-32); TOTAL PROTEIN 7.5 G/DL (6.4-8.2); eCRCL 99 ML/MIN; eGFR > 90 ML/MIN
[2023-12-14] MEDS: loperamide 2mg capsule PO ONE (04:19)
[2023-12-14] MEDS: ondansetron 4mg rapidly disintigrating tab PO ONE (04:19)
[2023-12-14 04:27] LABS: UA COLLECTION TYPE CLN CATCH MIDSTREAM
[2023-12-14 04:28] LABS: BACTERIA,URINE FEW /HPF (Neg); MUCUS STRANDS FEW /LPF (Neg); SQUAMOUS EPITHELIAL CELL,UR FEW /LPF (FEW); WBC,URINE 0-4 /HPF (0-4)
[2023-12-14 04:29] LABS: RBC,URINE 0-2 /HPF (0-2)
[2023-12-14] MEDS: normal saline 1000ML IV soln IVB ONE (05:06)
[2023-12-14 05:21] LABS: BASOPHILS # (AUTO) 0.1 X10'3 (0-0.2); BASOPHILS % (AUTO) 1.3 % (0-1); EOSINOPHILS # (AUTO) 0.1 X10'3 (0-0.9); EOSINOPHILS % (AUTO) 1.2 % (0-6); HEMATOCRIT 42.3 % (35.0-45.0); HEMOGLOBIN 14.7 g/dl (12.0-16.0); LYMPHOCYTES % (AUTO) 33.1 % (21-51); MEAN CORPUSCULAR HEMOGLOBIN 34.6 PG (27.0-31.0); MEAN CORPUSCULAR HGB CONC 34.7 g/dL (33.0-36.5); MEAN CORPUSCULAR VOLUME 99.9 FL (78-98); MONOCYTES # (AUTO) 0.4 X10'3 (0-0.9); NEUTROPHILS # (AUTO) 3.6 X10'3 (1.8-7.7); NEUTROPHILS % (AUTO) 57.4 % (42-75); PLATELET COUNT 218 X10'3 (140-440); RED BLOOD COUNT 4.24 X10'6 (4.20-5.60); RED CELL DISTRIBUTION WIDTH 13.4 % (11.5-14.5); WHITE BLOOD COUNT 6.2 X10'3 (4.5-11.0)
[2023-12-14] MEDS ORDERED: ONDA-245 PO (05:55)
[2023-12-14] MEDS: LORazepam 2 mg/ml vial IV ONE (06:01)
[2023-12-14 06:35] VITALS: BP 138/93; PULSE 103; RESP 18; O2SAT 98
[2023-12-14 08:27] LABS: BETA HCG,QUANTITATIVE 108 mIU/ml
== END 2023-12-14 06:46 | disposition home or self-care (01) ==
LOC: ER 03:19
DX: K85.90 Acute pancreatitis without necrosis or infection, unspecified (principal); G89.29 Other chronic pain; F12.90 Cannabis use, unspecified, uncomplicated; Z90.49 Acquired absence of other specified parts of digestive tract; Z88.1 Allergy status to other antibiotic agents; Z88.3 Allergy status to other anti-infective agents; Z79.899 Other long term (current) drug therapy
CPT/HCPCS: 36415; 80053; 81001; 81025; 83690; 84145; 84702; 85025; 96361; 96374; 99283; J2060; J7030

== ENCOUNTER 2024-02-15 10:58 | Emergency (ER) | payer MEDICAID ==
[~2024-02-15] VITALS: Ht 165.1 cm; Wt 93.2 kg
[~2024-02-15 10:58] MED LIST changes: +ONDA-245 PO
[2024-02-15 11:10] VITALS: TEMP 98.5
[2024-02-15] MEDS ORDERED: CHLO25CA10 PO (12:29)
[2024-02-15 12:45] VITALS: BP 130/89; PULSE 79; RESP 16; O2SAT 94
[2024-02-15] MEDS: chlordiazePOXIDE 25mg capsule PO ONE (13:09)
== END 2024-02-15 13:12 | disposition home or self-care (01) ==
LOC: ER 10:59
DX: F10.239 Alcohol dependence with withdrawal, unspecified (principal); F10.229 Alcohol dependence with intoxication, unspecified; G89.29 Other chronic pain; F12.90 Cannabis use, unspecified, uncomplicated; Z88.3 Allergy status to other anti-infective agents; Z88.8 Allergy status to other drugs, medicaments and biological substances; Z90.49 Acquired absence of other specified parts of digestive tract; Y90.9 Presence of alcohol in blood, level not specified
CPT/HCPCS: 99283

== ENCOUNTER 2024-07-02 05:25 | Inpatient (IN) | payer MEDICAID ==
[~2024-07-02] VITALS: Ht 172.7 cm; Wt 95.5 kg
[~2024-07-02 05:25] MED LIST changes: +CHLO25CA10 PO
[2024-07-02] MEDS: diphenhydrAMINE 50 mg/ml inj IM ONE (07:29)
--- NOTE | 2024-07-02 08:30 | Physician Documentation ---
History of Present Illness ~ Chief Complaint: Anxiety Stated Complaint: PANIC ATTACK Time Seen by MD: 06:09 Primary Medical Doctor: Gregory DEAL 33-year-old female history of heavy alcohol use, pancreatitis, anxiety disorder presenting for nausea vomiting and anxiety. She usually drinks half a pt of vodka daily. Last drink was last night Medication Reconciliation Allergies: Coded Allergies: fluconazole (Verified Allergy, Severe, 07/02/24) metronidazole (Verified Allergy, Unknown, 07/02/24) Scheduled Pantoprazole Sodium (PROTONIX tablet), 40 MG PO DAILY Scheduled PRN Propranolol Hcl (Propranolol Hcl), 1 TAB PO DAILY PRN for anxiety Discontinued Medications Chlordiazepoxide Hcl (Librium), 25 MG PO DIRECTED Discontinued Reason: patient no longer taking Folic Acid (FOLIC ACID tablet), 1 TAB PO DAILY, (Reported) Discontinued Reason: patient no longer taking Multivits-Min/Iron/FA/Lutein (Centrum Silver Women Tablet), 1 TAB PO DAILY Discontinued Reason: patient no longer taking Ondansetron 8mg ODT (Ondansetron Odt), 1 TAB PO Q6H Discontinued Reason: patient no longer taking Pantoprazole Sodium (Pantoprazole Sodium), 1 TAB PO DAILY, (Reported) Discontinued Reason: patient no longer taking Thiamine Mononitrate (Vitamin B-1), 1 TAB PO DAILY Discontinued Reason: patient no longer taking Past Medical History Past Medical History: Pancreatitis, Kidney Stones, Chronic Back Pain, Anxiety Past Surgical History: appendectomy Last Menstrual Period: Jun 18, 2024 Alcohol Use: Alcoholic Drug Use: marijuana Occupation: employed Review of Systems All Other Systems at this time: Reviewed and Negative Constitutional: Denies: fever Physical Exam Vital Signs: Temperature: 98.6, Source: Temporal, Heart Rate: 97, Respiratory Rate: 14, BP: 142/104, Pulse Oximetry: 97, Weight: 95.450 Oxygen Flow Rate: 0 Physical Exam Nontoxic, actively retching and vomiting Abdomen soft nontender Progress Progress Note Discussed case with hospitalist resident service who agreed to accept for admission. They are requesting CT abdomen and pelvis which they agree to follow up Results/Orders Reviewed/noted all lab results: Yes Results/Orders Orders - CHRIS LIVINGSTON MD Lipase (07/02/24 08:48) Saline Lock (07/02/24 08:48) CMP (07/02/24 08:48) Substance Use Navigator (07/02/24 09:13) Page Hospitalist (07/02/24 11:08) Fill Out Med Reconciliation (07/02/24 11:08) Ct Abdomen Pelvis (07/02/24 11:12) Ethanol (07/02/24 09:10) Hgb A1c (07/02/24 09:10) PHOS (07/02/24 09:10) TSH (07/02/24 09:10) MG (07/02/24 09:10) PBNP (07/02/24 09:10) Completed Orders - CHRIS LIVINGSTON MD Cbc/Diff (07/02/24 08:48) Ringers Solution, Lacted (Lactated Ringe (07/02/24 08:50) Haloperidol Lact. (Haldol) (07/02/24 08:50) Hcg, Ur Ql (07/02/24 08:50) Ua W/Microscopic, Cult If Ind (07/02/24 09:00) Thiamine Inj. (Thiamine Inj.) (07/02/24 11:10) Dextrose 5%-Lactated Ringers (Dextrose (07/02/24 11:10) Ct Abdomen Pelvis (07/02/24 11:12) Medications Received in ER Medications (Trade) Dose Ordered Sig/Mary Ellen Route PRN Reason Start Time Stop Time Status Last Admin Dose Admin (Benadryl inj.) 50 mg ONCE ONCE IM 07/02/24 06:05 07/02/24 06:06 DC 07/02/24 07:29 50 MG Lactated Ringer's 1,000 ml @ 1,000 mls/hr ONCE ONCE IV 07/02/24 08:50 07/02/24 09:49 DC 07/02/24 09:00 1,000 MLS/HR (Haldol) 2 mg ONCE ONCE IVH 07/02/24 08:50 07/02/24 08:51 DC 07/02/24 09:07 2 MG (thiamine inj.) 100 mg ONCE ONCE IV 07/02/24 11:10 07/02/24 11:11 DC 07/02/24 11:40 100 MG Dextrose/Lactated Ringer's 1,000 ml @ 500 mls/hr Q2H ONCE IV 07/02/24 11:10 07/02/24 12:35 DC 07/02/24 11:40 500 MLS/HR Vital Signs 07/02/24 07/02/24 07/02/24 07/02/24 05:31 07:29 09:12 11:32 Temp 98.6 Pulse 105 97 92 111 Resp 20 14 16 16 B/P (MAP) 151/99 142/104 (117) 146/93 (110) 142/110 (121) Pulse Ox 100 97 95 96 O2 Flow Rate 0 0 Laboratory Tests Test 07/02/24 09:00 07/02/24 09:10 Urine Specimen Description Cln catch midstream Urine Color Monica Urine Clarity Clear Urine pH 6.0 Urine Specific Paradox >=1.030 Urine Protein 30 H Urine Glucose (UA) Negative Urine Ketones >=80 Urine Occult Blood Moderate H Urine Nitrite Negative Urine Bilirubin Small Urine Urobilinogen 1.0 Urine Leukocyte Esterase Negative Urine RBC 0-2 Urine WBC 0-4 Urine Squamous Epithelial Cells Moderate Urine Bacteria 1+ Urine Hyaline Casts 0-3 Urine Mucus Few Urine Culture Indicated Not ind Volume Urine Centrifuged 10 ml Urine HCG, Qualitative Negative Urine Comment White Blood Count 11.1 H Red Blood Count 4.64 Hemoglobin 16.0 Hematocrit 46.8 H Mean Corpuscular Volume 101.0 H Mean Corpuscular Hemoglobin 34.6 H Mean Corpuscular Hemoglobin Concent 34.2 Red Cell Distribution Width 14.3 Platelet Count 247 Mean Platelet Volume 8.9 Neutrophils (%) (Auto) 79.8 H Lymphocytes (%) (Auto) 13.9 L Monocytes (%) (Auto) 5.6 Eosinophils (%) (Auto) 0 Basophils (%) (Auto) 0.7 Neutrophils # (Auto) 8.9 H Lymphocytes # (Auto) 1.5 Monocytes # (Auto) 0.6 Eosinophils # (Auto) 0.0 Basophils # (Auto) 0.1 CBC Comment Prothrombin Time 11.4 INR International Normalized Ratio 1.1 Activated Partial Thromboplast Time 25 Coagulation Comments Sodium Level 146 H Potassium Level 3.6 Chloride Level 104 Carbon Dioxide Level 20.3 L Anion Gap 22 H Blood Urea Nitrogen 6 L Creatinine 0.90 Estimated GFR/1.73 m2 72 BUN/Creatinine Ratio 6.7 L Glucose Level 113 H Calcium Level 9.0 Total Bilirubin 1.3 H Aspartate Amino Transf (AST/SGOT) 248 H Alanine Aminotransferase (ALT/SGPT) 79 H Alkaline Phosphatase 140 H Total Protein 7.4 Albumin 3.8 Globulin 3.6 Albumin/Globulin Ratio 1.1 Lipase 58 Chemistry Comments Ethyl Alcohol Level 58 H EKG/XRAY/CT/US/VASC/MRI CT : Impression CT abdomen pelvis independently interpreted myself shows no free air no free fluid Medical Decision Making Additional info obtained from: old records Findings Reviewed discharge summary 02/15/2024 pancreatitis Differential Diagnosis GERD pancreatitis gastroparesis other causes of nausea vomiting Departure Disposition: ADMITTED INPATIENT Impression: Primary Impression: Alcoholic ketoacidosis Referrals: NO PRIMARY CARE PROVIDER (PCP) Critical Care Note Total Time (mins): 30 Critical Care Note The very real possibility of a deterioration of this patient's condition required the highest level of my preparedness for sudden, emergent intervention. I provided critical care services, which included medication orders, frequent reevaluations of the patient's condition and response to treatment, ordering and reviewing test results, and discussing the case with various consultants. Excludes time spent performing separately billable procedures. The critical care time associated with the care of the patient was 30 minutes in the management of metabolic acidosis alcoholic ketoacidosis requiring intervention Signature Scribe Signature: alana Attestation: CHRIS Herrera MD July 02, 2024 08:30
[2024-07-02] MEDS: ringers solution, lacted 1,000 ML IV ONE (09:00)
[2024-07-02] MEDS: haloperidol lactate 5mg/ml inj IVH ONE (09:07)
[2024-07-02 09:19] LABS: BASOPHILS # (AUTO) 0.1 X10'3 (0-0.2); BASOPHILS % (AUTO) 0.7 % (0-1); EOSINOPHILS % (AUTO) 0 % (0-6); HEMATOCRIT 46.8 % (35.0-45.0); LYMPHOCYTES # (AUTO) 1.5 X10'3 (1.1-4.8); LYMPHOCYTES % (AUTO) 13.9 % (21-51); MEAN CORPUSCULAR HEMOGLOBIN 34.6 PG (27.0-31.0); MEAN CORPUSCULAR HGB CONC 34.2 g/dL (33.0-36.5); MEAN PLATELET VOLUME 8.9 FL (7.4-10.4); MONOCYTES # (AUTO) 0.6 X10'3 (0-0.9); MONOCYTES % (AUTO) 5.6 % (2-12); NEUTROPHILS # (AUTO) 8.9 X10'3 (1.8-7.7); NEUTROPHILS % (AUTO) 79.8 % (42-75); PLATELET COUNT 247 X10'3 (140-440); RED BLOOD COUNT 4.64 X10'6 (4.20-5.60); RED CELL DISTRIBUTION WIDTH 14.3 % (11.5-14.5); WHITE BLOOD COUNT 11.1 X10'3 (4.5-11.0)
[2024-07-02 09:19] LABS: BILIRUBIN,URINE SMALL (Neg); CLARITY,URINE CLEAR (Clear); GLUCOSE, URINE NEGATIVE (Neg); KETONES,URINE >=80 mg/dl (Neg); LEUKOCYTE ESTERASE ,URINE NEGATIVE (Neg); OCCULT BLOOD,URINE MODERATE (Neg); PROTEIN,URINE 30 mg/dl (Neg)
[2024-07-02 09:21] LABS: COLOR,URINE AMBER (Yellow); UA COLLECTION TYPE CLN CATCH MIDSTREAM
[2024-07-02 09:22] LABS: URINE HCG NEGATIVE (NEG)
[2024-07-02 09:26] LABS: BACTERIA,URINE 1+ /HPF (Neg); MUCUS STRANDS FEW /LPF (Neg); RBC,URINE 0-2 /HPF (0-2); SQUAMOUS EPITHELIAL CELL,UR MODERATE /LPF (FEW); WBC,URINE 0-4 /HPF (0-4)
[2024-07-02 09:27] LABS: HYALINE CASTS 0-3 /LPF (NEGATIVE)
[2024-07-02 09:34] LABS: ALANINE AMINOTRANSFERASE 79 U/L (12-78); ALBUMIN 3.8 G/DL (3.4-5.0); ALBUMIN/GLOBULIN RATIO 1.1 (1.1-1.5); ALKALINE PHOSPHATASE 140 IU/L (46-116); ANION GAP 22 (8-16); ASPARTATE AMINO TRANSFERASE 248 U/L (10-37); BILIRUBIN,TOTAL 1.3 MG/DL (0.1-1.0); BLOOD UREA NITROGEN 6 MG/DL (7-18); BUN/CREATININE RATIO 6.7 (10.0-20.0); CHLORIDE 104 MMOL/L (99-107); GLUCOSE 113 MG/DL (70-104); LIPASE 58 U/L (16-77); POTASSIUM 3.6 MMOL/L (3.5-5.1); SODIUM 146 MMOL/L (135-145); TOTAL CARBON DIOXIDE 20.3 MMOL/L (24-32); TOTAL PROTEIN 7.4 G/DL (6.4-8.2); eCRCL 90 ML/MIN; eGFR 72 ML/MIN
[2024-07-02 09:43] LABS: NITRITES, URINE NEGATIVE (Neg)
[2024-07-02 11:26] LABS: ETHANOL 58 MG/DL (<10)
[2024-07-02] MEDS: thiamine 100mg/ml 2ml inj. IV ONE (11:40)
[2024-07-02] MEDS: dextrose 5%-lactated ringers 1,000 ML IV ONE (11:40)
[2024-07-02] MEDS ORDERED: iohexol 300mg/ml 100ml inj. ONE (12:11)
[2024-07-02] MEDS ORDERED: magnesium hydroxide 30ml (MOM) UD suspension PO PRN (12:15)
[2024-07-02] MEDS ORDERED: mag hydrox/Alum hydrox/simeth 30ml oral suspension PO PRN (12:15)
[2024-07-02] MEDS ORDERED: ondansetron/PF 4mg/2ml inj IV PRN (12:15)
[2024-07-02] MEDS ORDERED: potassium Cl 20 mEq SR tablet PO PRN ×2 (12:15)
[2024-07-02] MEDS ORDERED: acetaminophen 325mg tablet PO PRN (12:15)
[2024-07-02] MEDS ORDERED: docusate sod 100mg capsule PO PRN (12:15)
[2024-07-02] MEDS ORDERED: potassium Cl 40MEQ/1/2NS 520ml 520 ML IV PRN (12:15)
[2024-07-02] MEDS ORDERED: HYDROmorphone inj. 0.5 MG/0.5 ML DISP.SYRIN IV PRN (12:15)
[2024-07-02] MEDS ORDERED: metoclopramide 5 mg/ml inj IV PRN (12:15)
[2024-07-02] MEDS ORDERED: magnesium sulf-water 4G/100mL 100 ML IV PRN (12:15)
[2024-07-02] MEDS ORDERED: magnesium sulf-water 2g/50mL 50 ML IV PRN (12:15)
[2024-07-02] MEDS ORDERED: LORazepam 2 mg/ml vial IV PRN (12:20)
[2024-07-02] MEDS ORDERED: nicotine 14mg patch - 24hr TD PRN (12:20)
[2024-07-02] MEDS ORDERED: haloperidol lactate 5mg/ml inj IM PRN (12:20)
[2024-07-02] MEDS ORDERED: propranolol 10mg tablet PO PRN (12:30)
[2024-07-02] MEDS: normal saline 1000ml 1,000 ML IV SCH (12:37)
[2024-07-02] MEDS: pantoprazole 40 MG vial IV SCH (12:37)
[2024-07-02 12:39] LABS: APTT 25 SECONDS (22-32); INR 1.1 INR; PROTHROMBIN TIME 11.4 SECONDS (9.0-12.0)
--- NOTE | 2024-07-02 12:43 | HISTORY AND PHYSICAL-Residence ---
History & Physical Providers to CC Resident Creating Document: KM CARO RES ~ History of Present Illness Primary Medical Doctor: Gregory Reason for Admit\Complaint: Chronic pancreatitis, alcohol withdrawal History of Present Illness A 33-year-old female who came in with feeling of nausea, vomiting, shaky with a feeling of panic attack and anxiety along with intense epigastric and left lower abdominal pain after she took unknown amount of vodka last night with a past medical history of chronic pancreatitis, upper GI bleeding two years ago, heavy alcohol abuse-vodka, nicotine vaping, and s/p appendicectomy. She endorsed that she started feeling nausea and threw up 2 times after she took unknown amount of heavy vodka last night. She denies vomiting of the blood, and fainting attack. She also felt like almost passing out and panic attack. She has been having occasional steatorrhea but denies blood in the stool/melena. She started having epigastric pain and left lower abdominal pain after she took heavy alcohol last night, pain was 10/10, radiating to the back and sharp/dull aching pain, leaning forward we will help her pain but aggravated by lying flat on her back. The last time she had bowel movement was yesterday which was on loose side and she can pass the gas. She had appendicectomy which was not complicated. She was never diagnosed with gallstones and cholecystitis. She denies fever with chills and rigors, chest pressure and pain, shortness of breath, bilateral pedal edema, abnormal bowel movement and urination and focal neurologic deficits. She is feeling anxiety, shaky, palpitations, feeling of almost passing out, and panic attack which is similar to her previous alcohol withdrawal symptoms. She tried to quit drinking but it was failed in this year March. Allergies: Coded Allergies: fluconazole (Verified Allergy, Severe, 07/02/24) metronidazole (Verified Allergy, Unknown, 07/02/24) Home Medications Home Medications Active PROTONIX tablet (Pantoprazole Sodium) 40 Mg Tablet.dr 40 Mg PO DAILY 30 Days Propranolol Hcl 10 Mg Tablet 1 Tab PO DAILY PRN 30 Days Past Medical History Past Medical History chronic pancreatitis, upper GI bleeding two years ago, heavy alcohol abuse- vodka, nicotine vaping Past Surgical History Surgical History Comment s/p appendicectomy. Past Social History Social History Comment She started drinking since her teenage, she started heavy drinking around 350- 400 cc of vodka every day for two years. She is still vaping nicotine almost two years now, denies using marijuana and any other illicit drugs. Smoking: Non-Smoker Alcohol Use: Alcoholic Drug Use: Marijuana Occupation: employed ROS All Other Systems: Reviewed and Negative ROS ROS were review, WNL except for the above-mentioned in the HPI Constitutional: Denies: fever Exam Vitals: Vital Signs Date Time Temp Pulse Resp B/P (MAP) Pulse Ox O2 Delivery O2 Flow Rate FiO2 07/02/24 11:32 111 16 142/110 (121) 96 07/02/24 09:12 0 07/02/24 05:31 98.6 General: General: Anxious, Well alert, well oriented, not confused, not agitated, not in acute distress, well cooperated during the physical. HEENT: HEENT: Conjunctive are pink, sclerae clear, no icterus, pupil is equal in both sides, reactive to light, no ear discharge, no pharyngeal erythema or an edema, mouth and lips are dry. Neck: Neck: Supple, no JVD, no lymphadenopathy and thyromegaly. Chest: Lungs:Equal air entry on both lungs, no additional sounds Cardiovascular: Heart: S1-S2 regular sinus rhythm and, regular rate, no gallops, no rubs, no murmurs Abdomen: Abdomen: No visible peristalsis, Bowel sounds present on auscultation but sluggish, soft, intense tender in epigastrium and left iliac fossa, no guarding, no rigidity Extremities: Extremities: No obvious deformities, no pitting edema bilaterally, capillary refill intact, able to wiggle toes both sides, peripheral pulsations are intact on both sides Central Nervous System: DRY CLEANING ATTENDANT: No focal neurological deficits, no motor and sensory weakness in all 4 extremities, could move all 4 extremities Musculoskeletal: Musculoskeletal: No joint swelling, deformities, inflammations, and no scoliosis and back tenderness Skin: Skin: No active skin lesions and rashes Diagnostic Data Last Recorded Lab Results: 07/02/2490907/02/24909 Diagnostic Data: Laboratory Tests Test 07/02/24 09:10 Coagulation Comments Counseling Services Smoking & Tobacco Cessation: > 10 Minutes Advance Care Planning Advanced Care plannin - 30 Minutes Additional Plan A 33-year-old female who came in with feeling of nausea, vomiting, shaky with a feeling of panic attack and anxiety along with intense epigastric and left lower abdominal pain after she took unknown amount of vodka last night with a past medical history of chronic pancreatitis, upper GI bleeding two years ago, heavy alcohol abuse-vodka, nicotine vaping, and s/p appendicectomy. # Abdominal pain with Hx of recurrent pancreatitis # GI upset from Chronic Pancreatitis # Gastritis # to R/O pancreatitis Complications # neutrophilic leukocytosis -lipase 58, WBC 11.1, normal temperature-to rule out recurrent pancreatitis complications -CT AP w/ IV contrast showed IMPRESSION: 1. Peripancreatic stranding, likely representing acute pancreatitis. Correlate with appropriate lab values. 2. Hepatic steatosis. -pain control with IV Dilaudid as needed -NPO/clear liquid if the patient tolerate nausea vomiting and abdominal pain -control the nausea and vomiting with the Zofran/Reglan as needed -UA showed protein, moderate occult blood, no UTI -continue IV fluids 0.9% sodium chloride 200 mL/hr -continue IV pantoprazole 40 mg daily # Substance abuse Hx- Heavy EtoH # Nicotine vaping # hyperchromic macrocytic anemia # High blood pressure -social scientist were requested, appreciate it -strongly encourage to quit drinking alcohol, set up with PCP for supporting mentally and physical help for quitting program -nicotine patch 14 mg daily as needed -initiated heavy alcohol withdrawal protocol -vitamin B12, B1, and folic acid daily -high-pressure could be part of the withdrawal symptoms, continue with IV lorazepam as needed as a part of the withdrawal protocol, continue IV hydralazine 10 mg q.6 hours as needed for BP> 180/80 mm Hg. CODE STATUS: Full code DVT prophylaxis: Sc heparin Analgesia/sedation: IV Dilaudid, Tylenol Lines/tubes: Peripheral IV GI prophylaxis: Pantoprazole Nutrition: NPO/clear liquid if the patient tolerate nausea vomiting and abdominal pain Prognosis: Guarded Disposition: Continue medical management including IV fluids, pain control, nausea and vomiting control, alcohol withdrawal protocol, PT eval and DC plan including PCP set up for the alcohol quitting program. Resident MD attestation: Patient was seen, examined and discussed with attending MD, Dr. Gabrielle CARO MD Internal Medicine Resident, PGY2 [facility] Date of Service: July 02, 2024 Billing Provider: SARAH ALLEN MD Common Visit Codes: 92370-[id number] INP/OBS CARE (HIGH), 81980-YCQ/OBS DISCH DAY >30min Secondary Visit Codes: 41132-[id number] CARE PLAN 30 MINUTES KM CARO, RES July 02, 2024 12:42 SARAH ALLEN MD July 03, 2024 21:26
[2024-07-02 12:52] LABS: HEMOGLOBIN A1C 5.3 % (4.5-6.2)
--- NOTE | 2024-07-02 12:57 | RADIOLOGY REPORT ---
Indication: abdominal pain Technique: CT axial images of the abdomen and pelvis are obtained with intravenous contrast. Coronal and sagittal reformats were obtained. Radiation Dose Information: CTDI volume is mGy. Dose-length product is mGy*cm Comparison: CT CT ABDOMEN PELVIS on DOS: 10/13/23, CT CT ABDOMEN PELVIS on DOS: 08/09/23 FINDINGS: The lung bases demonstrate no pleural effusion. Adrenal glands, spleen unremarkable. Peripancreatic stranding. Hepatic steatosis. No CT evidence for cholelithiasis. Kidneys demonstrate no hydronephrosis. Stomach partially distended. Small bowel loops are normal in caliber. Colonic diverticula. No secondary signs for appendicitis. Abdominal aorta normal in caliber. Bladder contracted. No free pelvic fluid. No inguinal lymphadenopa thy. No aggressive osseous process. IMPRESSION: 1. Peripancreatic stranding, likely representing acute pancreatitis. Correlate with appropriate lab v alues. 2. Hepatic steatosis. 3. Other findings as described.
[2024-07-02] MEDS: thiamine 100mg/ml 2ml inj. IV SCH (13:00)
--- NOTE | 2024-07-02 13:03 | RADIOLOGY REPORT ---
CHEST RADIOGRAPH Indication: pancreatitis and complications Detection Technique: Single frontal view of the chest was obtained Comparison: None FINDINGS: The cardiac silhouette is unremarkable. The lungs demonstrate no pulmonary airspace consolidation. Th e pulmonary vasculature is unremarkable. There is no pleural effusion.. There is no pneumothorax. IMPRESSION: 1. No pulmonary airspace consolidation.<< >>
[2024-07-02 13:05] LABS: MAGNESIUM 1.6 MG/DL (1.5-2.4); PHOSPHORUS 2.5 MG/DL (2.3-4.5); PRO BRAIN NATRIURETIC PEPTIDE < 30 PG/ML (0-125); THYROID STIMULATING HORMONE 1.59 ulU/ml (0.34-4.50)
[2024-07-02 14:30] VITALS: BP 160/92; PULSE 102; RESP 16; TEMP 98.6; O2SAT 97
[2024-07-02] MEDS: LORazepam 2 mg/ml vial IV PRN (14:54)
[2024-07-02] MEDS: HYDROmorphone/PF 0.2 MG/ML SYRINGE IV PRN (14:58)
[2024-07-02 18:00] VITALS: BP 155/94; PULSE 106; RESP 18; TEMP 99.5; O2SAT 98
[2024-07-02] MEDS: heparin, porcine 5000 units/ml vial SQ SCH (19:01)
[2024-07-02 20:00] VITALS: RESP 16; O2SAT 97
[2024-07-02] MEDS: K and/or MAG REPLACEMENT MC SCH (20:00)
[2024-07-02 22:00] VITALS: BP 144/93; PULSE 101; RESP 16; TEMP 98.1; O2SAT 97
[2024-07-03] MEDS: hydrALAZINE 20mg/ml inj. IV PRN (05:25)
[2024-07-03 05:41] LABS: BASOPHILS % (AUTO) 0.9 % (0-1); EOSINOPHILS % (AUTO) 0.4 % (0-6); HEMATOCRIT 39.3 % (35.0-45.0); HEMOGLOBIN 13.4 g/dl (12.0-16.0); LYMPHOCYTES # (AUTO) 1.8 X10'3 (1.1-4.8); LYMPHOCYTES % (AUTO) 32.6 % (21-51); MEAN CORPUSCULAR HEMOGLOBIN 34.8 PG (27.0-31.0); MEAN CORPUSCULAR HGB CONC 34.1 g/dL (33.0-36.5); MEAN PLATELET VOLUME 9.2 FL (7.4-10.4); MONOCYTES # (AUTO) 0.5 X10'3 (0-0.9); MONOCYTES % (AUTO) 9.9 % (2-12); NEUTROPHILS % (AUTO) 56.2 % (42-75); PLATELET COUNT 147 X10'3 (140-440); RED BLOOD COUNT 3.86 X10'6 (4.20-5.60); RED CELL DISTRIBUTION WIDTH 13.9 % (11.5-14.5); WHITE BLOOD COUNT 5.4 X10'3 (4.5-11.0)
[2024-07-03 05:52] LABS: ALANINE AMINOTRANSFERASE 47 U/L (12-78); ALBUMIN 2.7 G/DL (3.4-5.0); ALBUMIN/GLOBULIN RATIO 0.9 (1.1-1.5); ALKALINE PHOSPHATASE 108 IU/L (46-116); ANION GAP 10 (8-16); ASPARTATE AMINO TRANSFERASE 89 U/L (10-37); BLOOD UREA NITROGEN 4 MG/DL (7-18); BUN/CREATININE RATIO 4.8 (10.0-20.0); CALCIUM 7.7 MG/DL (8.5-10.1); CHLORIDE 104 MMOL/L (99-107); CHOL/HDL RATIO 1.5 (0.00-4.99); CHOLESTEROL 157 MG/DL (0-200); CREATININE 0.84 MG/DL (0.40-0.90); GLUCOSE 94 MG/DL (70-104); HDL CHOLESTEROL 104 MG/DL (35-60); LDL CHOLESTEROL 40 MG/DL (50-100); MAGNESIUM 1.2 MG/DL (1.5-2.4); POTASSIUM 3.6 MMOL/L (3.5-5.1); SODIUM 141 MMOL/L (135-145); TOTAL CARBON DIOXIDE 26.7 MMOL/L (24-32); TOTAL PROTEIN 5.7 G/DL (6.4-8.2); TRIGLYCERIDES 123 MG/DL (20-135); eCRCL 96 ML/MIN; eGFR 78 ML/MIN
[2024-07-03 06:00] VITALS: BP 143/104; PULSE 82; RESP 16; TEMP 98.1; O2SAT 96
[2024-07-03] MEDS: magnesium Cl slow-release 64mg tablet PO PRN (08:50)
[2024-07-03] MEDS: cyanocobalamin 500mcg tablet PO SCH (08:50)
[2024-07-03] MEDS: multivitamins, therapeutics tablet PO SCH (08:50)
[2024-07-03] MEDS ORDERED: HYDROcodone/acetaminophen 5mg/325mg tablet PO PRN ×2 (09:15)
[2024-07-03 10:00] VITALS: BP 148/106; PULSE 114; RESP 18; TEMP 98.6; O2SAT 98
[2024-07-03] MEDS ORDERED: HYDR-3965 PO (11:58)
[2024-07-03] MEDS: folic acid 1mg/0.2ml inj IV SCH (13:47)
[2024-07-03] MEDS ORDERED: ONDA-243 PO (17:04)
[2024-07-03] MEDS ORDERED: FOLI1TAB27 PO (17:04)
[2024-07-03] MEDS ORDERED: MULT-25 PO (17:04)
[2024-07-03] MEDS ORDERED: THIA50TA10 PO (17:04)
[2024-07-03] MEDS ORDERED: NICO-631 TOP (17:04)
--- NOTE | 2024-07-03 17:12 | DISCHARGE SUMMARY-Residence ---
Discharge Summary Providers to Resident Creating Document: MILLY STRICKLANDESH, MADELINE ~ Discharge Summary Admission Diagnosis: Chronic pancreatitis with metabolic acidosis Hospital Course DATE OF ADMISSION: 07/02/2024 DATE OF DISCHARGE: 07/03/2024 CT abdomen on 07/02/2024 FINDINGS: The lung bases demonstrate no pleural effusion. Adrenal glands, spleen unremarkable. Peripancreatic stranding. Hepatic steatosis. No CT evidence for cholelithiasis. Kidneys demonstrate no hydronephrosis. Stomach partially distended. Small bowel loops are normal in caliber. Colonic diverticula. No secondary signs for appendicitis. Abdominal aorta normal in caliber. Bladder contracted. No free pelvic fluid. No inguinal lymphadenopathy. No aggressive osseous process. IMPRESSION: 1. Peripancreatic stranding, likely representing acute pancreatitis. Correlate with appropriate lab values. 2. Hepatic steatosis. 3. Other findings as described. Chest x-ray 07/02/2024 FINDINGS: The cardiac silhouette is unremarkable. The lungs demonstrate no pulmonary airspace consolidation. The pulmonary vasculature is unremarkable. There is no pleural effusion.. There is no pneumothorax. IMPRESSION: 1. No pulmonary airspace consolidation. Discharge Diagnosis\Comment: Acute on chronic pancreatitis Alcohol use disorder High anion gap metabolic acidosis Hypomagnesemia Hyperbilirubinemia Nicotine vaping Hyperchromic macrocytic anemia High blood pressure Leukocytosis Operations\Procedures: None Consultants: None Complications: None Condition on DC: Stable New Medications: Folic Acid* (Folic Acid*) Y Tab 1 TAB PO DAILY for 30 Days, #30 TAB 0 Refills Hydrocodone Bit/Acetaminophen 5/325 MG (Hodge 5/325 MG) 5 Mg/325 Mg Tablet 1 TAB PO Q6H PRN for pain, #14 TAB Multivitamin with Folic Acid (Thera Tablet) 400 Mcg Tablet 1 TAB PO DAILY for 30 Days, #30 TAB 0 Refills Nicotine 14 MG Patch* (Habitrol 14 MG Patch*) 1 Each Patch.td24 1 PATCH TOP DAILY for smoking cessation for 28 Days, #28 PATCH ONDANSETRON ODT 4mg tablet (Ondansetron Odt) 4 Mg Tab.rapdis 1 TAB PO Q6H PRN PRN for nausea/vomiting for 4 Days, #16 TAB 0 Refills Thiamine HCl (Vitamin B-1) 50 Mg Tablet 2 TAB PO DAILY for 30 Days, #60 TAB 0 Refills Continued Medications: Pantoprazole Sodium (PROTONIX tablet) 40 Mg Tablet. 40 MG PO DAILY for 30 Days, #30 TAB.SR Propranolol Hcl (Propranolol Hcl) 10 Mg Tablet 1 TAB PO DAILY PRN for anxiety for 30 Days, #60 TAB 0 Refills Discharge Summary: HPI at the time of admission per admitting physician(Dr. Jeremias Hogan) A 33-year-old female who came in with feeling of nausea, vomiting, shaky with a feeling of panic attack and anxiety along with intense epigastric and left lower abdominal pain after she took unknown amount of vodka last night with a past medical history of chronic pancreatitis, upper GI bleeding two years ago, heavy alcohol abuse-vodka, nicotine vaping, and s/p appendicectomy. She endorsed that she started feeling nausea and threw up 2 times after she took unknown amount of heavy vodka last night. She denies vomiting of the blood, and fainting attack. She also felt like almost passing out and panic attack. She has been having occasional steatorrhea but denies blood in the stool/melena. She started having epigastric pain and left lower abdominal pain after she took heavy alcohol last night, pain was 10/10, radiating to the back and sharp/dull aching pain, leaning forward we will help her pain but aggravated by lying flat on her back. The last time she had bowel movement was yesterday which was on loose side and she can pass the gas. She had appendicectomy which was not complicated. She was never diagnosed with gallstones and cholecystitis. She denies fever with chills and rigors, chest pressure and pain, shortness of breath, bilateral pedal edema, abnormal bowel movement and urination and focal neurologic deficits. She is feeling anxiety, shaky, palpitations, feeling of almost passing out, and panic attack which is similar to her previous alcohol withdrawal symptoms. She tried to quit drinking but it was failed in this year March. Course in the hospital A 33-year-old female admitted for acute on chronic pancreatitis with alcoholic ketoacidosis. serum lipase is 58, WBC 11.1, CT AP w/ IV contrast showed Peripancreatic stranding, likely representing acute pancreatitis. Hepatic steatosis. pain control with IV Dilaudid as needed. Patient initially kept on NPO and then advanced into the right to full liquid diet patient tolerated well without any pain on today. Received Zofran and on Reglan p.r.n. for nausea and vomiting control. UH showed moderate occult blood. Patient received pantoprazole & IV normal saline. director of cardiopulmonary services were avail. Received Nicotine patch 14 mg daily, on detox protocol with B12 B1, folic acid, lorazepam, Haldol p.r.n. subcu heparin for DVT prophylaxis. Discharge the patient because patient is improved sooner than expected and completely symptomatically free abdominal pain. Examination at the time of discharge Vital Signs Date Time Temp Pulse Resp B/P (MAP) Pulse Ox O2 Delivery O2 Flow Rate FiO2 07/03/24 10:00 98.6 114 18 148/106 (120) 98 Room Air 07/02/24 09:12 0 General: General: Anxious, Well alert, well oriented, not confused, not agitated, not in acute distress, well cooperated during the physical. HEENT: HEENT: Conjunctive are pink, sclerae clear, no icterus, pupil is equal in both sides, reactive to light, no ear discharge, no pharyngeal erythema or an edema, mouth and lips are dry. Neck: Neck: Supple, no JVD, no lymphadenopathy and thyromegaly. Chest: Lungs:Equal air entry on both lungs, no additional sounds Cardiovascular: Heart: S1-S2 regular sinus rhythm and, regular rate, no gallops, no rubs, no murmurs Abdomen: Abdomen: No visible peristalsis, Bowel sounds present. soft, mild tenderness in epigastrium. no guarding, no rigidity Extremities: Extremities: No obvious deformities, no pitting edema bilaterally, capillary refill intact, able to wiggle toes both sides, peripheral pulsations are intact on both sides Central Nervous System: RIB MATCHER AND FITTER: No focal neurological deficits, no motor and sensory weakness in all 4 extremities, could move all 4 extremities Musculoskeletal: Musculoskeletal: No joint swelling, deformities, inflammations, and no scoliosis and back tenderness Skin: Skin: No active skin lesions and rashes Laboratory Tests Test 07/02/24 09:00 07/02/24 09:10 07/03/24 04:57 07/03/24 15:28 Urine Specimen Description Cln catch midstream Urine Color Monica Urine Clarity Clear Urine pH 6.0 Urine Specific [place] >=1.030 Urine Protein 30 mg/dl Urine Glucose (UA) Negative mg/dl Urine Ketones >=80 mg/dl Urine Occult Blood Moderate Urine Nitrite Negative Urine Bilirubin Small Urine Urobilinogen 1.0 E.U/dL Urine Leukocyte Esterase Negative Urine RBC 0-2 /HPF Urine WBC 0-4 /HPF Urine Squamous Epithelial Cells Moderate /LPF Urine Bacteria 1+ /HPF Urine Hyaline Casts 0-3 /LPF Urine Mucus Few /LPF Urine Culture Indicated Not ind Volume Urine Centrifuged 10 ml Urine HCG, Qualitative Negative Urine Comment White Blood Count 11.1 X10'3 5.4 X10'3 Red Blood Count 4.64 X10'6 3.86 X10'6 Hemoglobin 16.0 g/dl 13.4 g/dl Hematocrit 46.8 % 39.3 % Mean Corpuscular Volume 101.0 FL 102.0 FL Mean Corpuscular Hemoglobin 34.6 PG 34.8 PG Mean Corpuscular Hemoglobin Concent 34.2 g/dL 34.1 g/dL Red Cell Distribution Width 14.3 % 13.9 % Platelet Count 247 X10'3 147 X10'3 Mean Platelet Volume 8.9 FL 9.2 FL Neutrophils (%) (Auto) 79.8 % 56.2 % Lymphocytes (%) (Auto) 13.9 % 32.6 % Monocytes (%) (Auto) 5.6 % 9.9 % Eosinophils (%) (Auto) 0 % 0.4 % Basophils (%) (Auto) 0.7 % 0.9 % Neutrophils # (Auto) 8.9 X10'3 3.0 X10'3 Lymphocytes # (Auto) 1.5 X10'3 1.8 X10'3 Monocytes # (Auto) 0.6 X10'3 0.5 X10'3 Eosinophils # (Auto) 0.0 X10'3 0.0 X10'3 Basophils # (Auto) 0.1 X10'3 0.0 X10'3 CBC Comment Prothrombin Time 11.4 SECONDS INR International Normalized Ratio 1.1 INR Activated Partial Thromboplast Time 25 SECONDS Coagulation Comments Sodium Level 146 MMOL/L 141 MMOL/L Potassium Level 3.6 MMOL/L 3.6 MMOL/L Chloride Level 104 MMOL/L 104 MMOL/L Carbon Dioxide Level 20.3 MMOL/L 26.7 MMOL/L Anion Gap 22 10 Blood Urea Nitrogen 6 MG/DL 4 MG/DL Creatinine 0.90 MG/DL 0.84 MG/DL Estimated GFR/1.73 m2 72 ML/MIN 78 ML/MIN BUN/Creatinine Ratio 6.7 4.8 Glucose Level 113 MG/DL 94 MG/DL Hemoglobin A1c 5.3 % Calcium Level 9.0 MG/DL 7.7 MG/DL Phosphorus Level 2.5 MG/DL Magnesium Level 1.6 MG/DL 1.2 MG/DL Total Bilirubin 1.3 MG/DL 2.0 MG/DL Aspartate Amino Transf (AST/SGOT) 248 U/L 89 U/L Alanine Aminotransferase (ALT/SGPT) 79 U/L 47 U/L Alkaline Phosphatase 140 IU/L 108 IU/L Pro-B-Type Natriuretic Peptide < 30 PG/ML Total Protein 7.4 G/DL 5.7 G/DL Albumin 3.8 G/DL 2.7 G/DL Globulin 3.6 G/DL 3.0 G/DL Albumin/Globulin Ratio 1.1 0.9 Lipase 58 U/L Thyroid Stimulating Hormone (TSH) 1.59 ulU/ml Chemistry Comments Ethyl Alcohol Level 58 MG/DL Triglycerides Level 123 MG/DL Cholesterol Level 157 MG/DL LDL Cholesterol 40 MG/DL HDL Cholesterol 104 MG/DL Cholesterol/HDL Ratio 1.5 Glucometer 140 mg/dl Discharge advise Follow up with primary care physician within one week Recommended for strict alcohol abstinence and recommended for diet as tolerated to regular diet. Continue folic acid p.o. daily, Hodge five q.6 H p.r.n., multivitamin, thiamine 100 mg p.o. daily. Continue old medications of propranolol 10 mg, pantoprazole 40 mg Call 911 or visit ER if emergency. Read the adverse effects of the medication prescribed. *Problems/Diagnosis: (1) Acute on chronic pancreatitis (2) Alcohol use disorder (3) High anion gap metabolic acidosis (4) Hypomagnesemia (5) Hyperbilirubinemia (6) Current every day nicotine vaping (7) Macrocytic anemia (8) Leukocytosis (9) Alcoholic intoxication Status: Acute (10) Alcoholic ketoacidosis Status: Acute (11) Pancreatitis Status: Resolved (12) Alcohol dependence Status: Acute Total Time Spent on D/C: > 30 Minutes Counseling Services Smoking & Tobacco Cessation: > 10 Minutes Date of Service: July 03, 2024 Billing Provider: SARAH ALLEN MD Common Visit Codes: 97548-ZXL/OBS DISCH DAY >30min VIDYA STRICKLAND, RES July 03, 2024 17:12 SARAH ALLEN MD July 03, 2024 21:26
== END 2024-07-03 18:02 | disposition home or self-care (01) | DRG 282 ==
LOC: ER 05:26 → ED HOLD 11:35 → ORTHO 4S 14:20
PROVIDERS: ADMIT Internal Medicine; ATTEND Internal Medicine
DX: K85.90 Acute pancreatitis without necrosis or infection, unspecified (principal); E87.20 Acidosis, unspecified; E87.29 Other acidosis; K76.0 Fatty (change of) liver, not elsewhere classified; K86.1 Other chronic pancreatitis; E83.42 Hypomagnesemia; E80.6 Other disorders of bilirubin metabolism; D53.9 Nutritional anemia, unspecified; D72.829 Elevated white blood cell count, unspecified; Z90.49 Acquired absence of other specified parts of digestive tract; Z87.442 Personal history of urinary calculi
CPT/HCPCS: 36415; 71045; 74177; 80053; 80061; 80320; 81001; 81025; 82948; 83036; 83690; 83735; 83880; 84100; 84443; 85025; 85610; 85730; 96360; 96361; 96372; 99285; G0378; J0360; J1171; J1200; J1630; J1644; J2060; J2470; J3411; J3490; J7030; J7120; J7121; Q9967

== ENCOUNTER 2024-09-21 06:57 | Emergency (ER) | payer MEDICAID ==
[~2024-09-21] VITALS: Ht 165.1 cm; Wt 95.5 kg
[~2024-09-21 06:57] MED LIST changes: -CHLO25CA10 PO; -FOLI0.4T14 PO; +FOLI1TAB27 PO; -MULT-1133 PO; +MULT-25 PO; +ONDA-243 PO; -ONDA-245 PO; -PANT40TA54 PO; -THIA100T70 PO; +THIA50TA10 PO
--- NOTE | 2024-09-21 07:22 | Physician Documentation ---
History of Present Illness Chief Complaint: Abdominal Pain w/vomiting Stated Complaint: ABDOMINAL PAIN,VOMITING Time Seen by MD: 07:10 Primary Medical Doctor: Gregory Source: patient Mode of Arrival: POV Exam Limitations: no limitations HPI Patient with a history of pancreatitis. It has been a heavy drinker over the past 3 years. Daily she consumes a 750 mL bottle of alcohol. Last drink was around 10:30 p.m. last night. Presents to the ER around 7:00 a.m.. Pain is 7/10 and in the epigastric region in the right upper quadrant on onto her right side. States it is usually just in the front. Last episode of pancreatitis was February. She reports she has had pancreatitis about 12 times. Still has her gallbladder. Pain has been consistent. She has been vomiting overnight. History of appendectomy. Location: RUQ, epigastric Last Menstrual Period: Sep 21, 2024 History Of: no pertinent history, ectopic, PID, abdominal surgery, urolithiasis, current , other (Pancreatitis) Modifiy Factors: Improves with: nothing Associated Symptoms: vomiting Medication Reconciliation Allergies: Coded Allergies: fluconazole (Verified Allergy, Severe, 07/02/24) metronidazole (Verified Allergy, Unknown, 07/02/24) Uncoded Allergies: STRAWBERRIES (Allergy, Unknown, 09/21/24) Scheduled Folic Acid* (Folic Acid*), 1 TAB PO DAILY Multivitamin with Folic Acid (Thera Tablet), 1 TAB PO DAILY Pantoprazole Sodium (PROTONIX tablet), 40 MG PO DAILY Thiamine HCl (Vitamin B-1), 2 TAB PO DAILY Scheduled PRN ONDANSETRON ODT 4mg tablet (Ondansetron Odt), 1 TAB PO Q6H PRN PRN for nausea/vomiting Propranolol Hcl (Propranolol Hcl), 1 TAB PO DAILY PRN for anxiety Past Medical History Past Medical History: Pancreatitis, Kidney Stones, Chronic Back Pain, Anxiety Past Surgical History: appendectomy Last Menstrual Period: Sep 21, 2024 Alcohol Use: Alcoholic Drug Use: marijuana Occupation: employed Review of Systems All Other Systems at this time: Reviewed and Negative Physical Exam Vital Signs: Temperature: 97.9, Source: Temporal, Heart Rate: 108, Respiratory Rate: 19, BP: 133/98, Pulse Oximetry: 98, Weight: 95.450 Oxygen Flow Rate: 0 General Appearance: alert, mild distress EENT: PERRL/EOMI Neck: normal inspection, full range of motion, supple Respiratory: normal breath sounds, no respiratory distress Chest: no accessory muscle use Cardiovascular: regular rate, rhythm Gastrointestinal: bowels sounds present Gastrointestinal Tender in the right upper quadrant and epigastric region Back: normal inspection Extremities: normal range of motion, non-tender Neurologic: oriented x4, oriented to time, oriented to person, oriented to place Psychiatric: normal mood/affect Skin: normal color, warm/dry Progress Progress Note Patient overall improved. Labs unremarkable. Ultrasound of right upper quadrant and CT scan with no acute findings. Does have fatty liver and I discussed this with the patient. Feel better after Zofran and Compazine. Discussed with her that she needs to follow up with the primary care provider. Recommend rehab. Discharged home in good condition. Return here if new or worsening symptoms prior to follow-up. Results/Orders Results/Orders Orders - MONY RUBIO MD Urinalysis, Cult If Indicated (09/21/24 07:07) Hcg, Ur Ql (09/21/24 07:07) Cbc/Diff (09/21/24 07:07) BMP (09/21/24 07:07) Lipase (09/21/24 07:07) CMP (09/21/24 07:07) Hcg Serum Ql (09/21/24 07:16) Direct Bili (09/21/24 07:16) Pt Inr (09/21/24 07:16) Morphine 4mg/Ml Inj. (Morphine Inj.) (09/21/24 07:20) Vital Signs 09/21/24 09/21/24 06:59 07:11 Temp 97.9 Pulse 108 Resp 20 19 B/P (MAP) 133/98 Pulse Ox 98 O2 Flow Rate 0 Medical Decision Making Additional Comments Differential includes but is not limited to: Pancreatitis, cholelithiasis, cholecystitis, choledocholithiasis, colitis, GERD, gastritis, esophagitis, pyelonephritis, nephrolithiasis Departure Disposition: 01 HOME / SELF CARE / HOMELESS Impression: Primary Impression: Abdominal pain Qualified Codes: R10.13 - Epigastric pain Additional Impression: Fatty liver Condition: Stable Discharge Instructions: Fatty Liver Disease, Abdominal Pain (Nonspecific) Additional Instructions: Follow up with your doctor in 7-10 days. Return if new or worsening symptoms. Referrals: NO PRIMARY CARE PROVIDER (PCP) Education Educated: Patient Educated regarding: diagnosis, prognosis, need for follow up Signature Scribe Signature: No scribe used Attestation: No scribe used MONY RUBIO MD Sep 21, 2024 07:22
[2024-09-21] MEDS: ondansetron/PF 4mg/2ml inj IV ONE (07:26)
[2024-09-21] MEDS: morphine 4 MG/ML inj SYRINge IV ONE (07:27)
[2024-09-21 07:32] LABS: MEAN PLATELET VOLUME 9.2 FL (7.4-10.4); RED CELL DISTRIBUTION WIDTH 14.9 % (11.5-14.5)
[2024-09-21 07:48] LABS: HCG SERUM QL NEGATIVE; INR 1.1 INR
[2024-09-21 07:53] LABS: CREATININE 0.87 MG/DL (0.40-0.90); TOTAL CARBON DIOXIDE 17.4 MMOL/L (24-32); eCRCL 83 ML/MIN; eGFR 75 ML/MIN
[2024-09-21 08:38] LABS: LEUKOCYTE ESTERASE ,URINE NEGATIVE (Neg); OCCULT BLOOD,URINE LARGE (Neg)
[2024-09-21 08:43] LABS: UA COLLECTION TYPE CLN CATCH MIDSTREAM
[2024-09-21 08:44] LABS: NITRITES, URINE NEGATIVE (Neg)
[2024-09-21 08:45] LABS: MUCUS STRANDS FEW /LPF (Neg); RENAL CELLS, URINE MANY /HPF; SQUAMOUS EPITHELIAL CELL,UR MANY /LPF (FEW)
[2024-09-21 08:47] LABS: COARSE GRANULAR CAST 0-3 /LPF (NEGATIVE)
[2024-09-21 08:49] LABS: ETHANOL 100 MG/DL (<10)
[2024-09-21] MEDS ORDERED: iohexol 300mg/ml 100ml inj. ONE (09:40)
--- NOTE | 2024-09-21 09:58 | RADIOLOGY REPORT ---
INDICATION: Right upper quadrant pain TECHNIQUE: Multiple real-time sonographic images of the abdomen were obtained. COMPARISON: None FINDINGS: The liver is heterogeneous in echogenicity. The liver measures 15cm. No intrahepatic bilia ry ductal dilatation is noted. The gallbladder wall measures 0.2 cm and is unremarkable. No gallstones or sludge is seen. The commo n duct measures 0.5 cm and is unremarkable. No pericholecystic fluid is noted. The right kidney measures 9cm. No hydronephrosis. The pancreas is not well visualized due to obscuration from bowel gas. The visualized portions of the IVC and aorta are grossly unremarkable. IMPRESSION: Hepatic steatosis.
--- NOTE | 2024-09-21 10:47 | RADIOLOGY REPORT ---
Exam: CT CT ABDOMEN PELVIS W/ IV CONTRAST History: ruq and epigastric pain, hx pancreatitis COMPARISON: CT CT ABDOMEN PELVIS W/ IV CONTRAST on DOS: 07/02/24, CT CT ABDOMEN PELVIS on DOS: 10/13/23, CT CT ABDOMEN PELVIS on DOS: 08/09/23 Technique: Multidetector spiral CT of the abdomen and pelvis was performed from lung bases to pubic symphysis. Intravenous contrast was administered during this examination. Portal venous imaging was obtained. Axial, coronal and sagittal multiplanar reformats were performed by the technologist on a separate workstation. Radiation Dose : Abdomen/Pelvis: CTDIvol 27 mGy, DLP 1495 mGy*cm. CONTRAST: Type of contrast: Omni 300 Contrast injected: 100 mL Findings: Lung Bases: No acute or significant lung base finding. Normal heart size. No pleural or pericardial effusion. Liver: Diffuse hepatic steatosis. Gallbladder and biliary Tree: Unremarkable Spleen: Unremarkable Pancreas: The pancreas is normal in appearance without focal lesions or abnormal enhancement. Adrenal Glands: Unremarkable Kidneys: No hydronephrosis. Bladder: Grossly unremarkable for degree of distention. Bowel: The stomach is grossly normal in appearance. Small bowel and colon are normal in caliber and d istribution. The appendix is not visualized; however, no secondary findings of acute appendicitis true ntified. Ascites: Absent Lymphadenopathy: No mesenteric, retroperitoneal or periportal lymphadenopathy. Abdominal wall and Mesentery: Unremarkable. Vasculature: The visualized abdominal aorta is normal in size and caliber. Abdominal and pelvic vess els demonstrate normal enhancement. Pelvic Organs: Unremarkable Musculoskeletal: No aggressive focal bony lesions, acute fractures or dislocation. IMPRESSION: 1. No acute abdominal or pelvic finding. Diffuse hepatic steatosis. No definite evidence of acute pa ncreatitis. Clinical correlation and continued follow-up is recommended. Radiation optimization: All CT scans at this facility use at least one of these dose optimization adia hniques: Automated exposure control mA and/or kV adjustment per patient size (includes targeted exams where dose is matched to clinical indication) or iterative reconstruction. HS:Y
[2024-09-21] MEDS: ketorolac trometh 15mg/ml vial 15 MG/ML ML IV ONE (11:27)
[2024-09-21 11:50] VITALS: BP 131/98; PULSE 87; RESP 16; TEMP 98; O2SAT 98
== END 2024-09-21 11:53 | disposition home or self-care (01) ==
LOC: ER 06:57
DX: K76.0 Fatty (change of) liver, not elsewhere classified (principal); F12.90 Cannabis use, unspecified, uncomplicated; F41.9 Anxiety disorder, unspecified; Z90.49 Acquired absence of other specified parts of digestive tract; Z88.3 Allergy status to other anti-infective agents; Z88.1 Allergy status to other antibiotic agents; Z79.899 Other long term (current) drug therapy; Z87.442 Personal history of urinary calculi
CPT/HCPCS: 36415; 74177; 76700; 80053; 80320; 81001; 82248; 83690; 84703; 85025; 85610; 96374; 96375; 99285; J0780; J1885; J2270; J2405; Q9967

== ENCOUNTER 2024-10-13 05:55 | Emergency (ER) | payer MEDICAID ==
[~2024-10-13] VITALS: Ht 165.1 cm; Wt 97.2 kg
[2024-10-13] MEDS ORDERED: ringers solution, lactated 1000ml IV soln IV ONE (06:05)
[2024-10-13] MEDS: ondansetron/PF 4mg/2ml inj IV ONE (06:41)
[2024-10-13 06:48] LABS: MEAN PLATELET VOLUME 8.9 FL (7.4-10.4); RED CELL DISTRIBUTION WIDTH 16.4 % (11.5-14.5)
[2024-10-13] MEDS: normal saline 1000ml 1,000 ML IV ONE (06:50)
[2024-10-13 07:03] LABS: CREATININE 0.88 MG/DL (0.40-0.90); ETHANOL 62 MG/DL (<10); TOTAL CARBON DIOXIDE 17.6 MMOL/L (24-32); eCRCL 82 ML/MIN; eGFR 74 ML/MIN
[2024-10-13 07:27] LABS: URINE AMPHETAMINE SCREEN NEGATIVE (Neg); URINE BARBITUATE SCREEN NEGATIVE (Neg); URINE BENZODIAZEPINES SCREEN NEGATIVE (Neg); URINE CANNABINOID SCREEN NEGATIVE (Neg); URINE COCAINE SCREEN NEGATIVE (Neg); URINE METHADONE SCREEN NEGATIVE (Neg); URINE OPIATE SCREEN NEGATIVE (Neg); URINE PHENCYCLIDINE SCREEN NEGATIVE (Neg)
--- NOTE | 2024-10-13 07:50 | Physician Documentation ---
History of Present Illness ~ Chief Complaint: Dizziness Stated Complaint: ANXIETY M BLS Time Seen by MD: 06:01 Primary Medical Doctor: Gregory Source: patient Mode of Arrival: Ambulatory Exam Limitations: no limitations HPI Chief Complaint: Dizziness, nausea vomiting Caveat: None Independent Historians: Paramedics History of Present Illness: Patient is a 33-year-old woman who comes in from home by paramedics. Patient complains of dizziness, anxiety and nausea and vomiting. However when the patient has vomiting here she is actually coughing. No shortness a breath. No chest pain, no abdominal pain. Patient states that she drinks daily. At least 750 mL bottle of alcohol. She last drank last night. Patient wants help with or alcoholism in getting to stop. Patient is requesting some medications to help her. Review of systems: All systems were reviewed and are negative except for what is indicated in the history of present illness. Past Medical History: Alcoholism Past Surgical History: Noncontributory Social History: Heavy daily alcohol use, no tobacco use, no drug use Medications: Reviewed as documented Nursing Notes Allergies: Reviewed as documented in Nursing Notes Medication Reconciliation Allergies: Coded Allergies: fluconazole (Verified Allergy, Severe, 07/02/24) metronidazole (Verified Allergy, Unknown, 07/02/24) Uncoded Allergies: STRAWBERRIES (Allergy, Unknown, 09/21/24) Scheduled Chlordiazepoxide Hcl (Librium), 25 MG PO DIRECTED Folic Acid* (Folic Acid*), 1 TAB PO DAILY Gabapentin (Gabapentin ER), 1 CAP PEG HS Multivitamin with Folic Acid (Thera Tablet), 1 TAB PO DAILY Pantoprazole Sodium (PROTONIX tablet), 40 MG PO DAILY Thiamine HCl (Vitamin B-1), 2 TAB PO DAILY Scheduled PRN ONDANSETRON ODT 4mg tablet (Ondansetron Odt), 1 TAB PO Q6H PRN PRN for nausea/vomiting Propranolol Hcl (Propranolol Hcl), 1 TAB PO DAILY PRN for anxiety Past Medical History Past Medical History: Pancreatitis, Kidney Stones, Chronic Back Pain, Anxiety Past Surgical History: appendectomy Alcohol Use: Alcoholic Drug Use: marijuana Occupation: employed Review of Systems All Other Systems at this time: Reviewed and Negative ROS Patient denies any other acute symptoms other than above. All other systems are negative Physical Exam Vital Signs: RN Vital Signs have been reviewed: Yes, Temperature: 97.5, Heart Rate: 84, Respiratory Rate: 20, BP: 151/113, Pulse Oximetry: 94, Weight: 97.200 Oxygen Flow Rate: 0 Physical Exam General Appearance: Mild distress, anxious HEENT: Normal OP, moist oral mucosa, PERRL, EOMI Neck: supple, normal ROM, trachea midline Pulmonary: No respiratory distress, CTA, BS equal Cardiac: RRR, no murmur, rub or gallop, GI: nondistended, soft, nontender, normal bowel sounds, no guarding, no rebound Extremities: normal ROM, no swelling, non-tender Skin: intact, dry, warm, no rashes Neuro: AAOx3, speech is clear, no focal motor weakness Psych: Anxious t, good eye contact, no apparent hallucination, normal speech Progress Results/Orders Results/Orders Orders - JACOBO STEPHENSON MD Monitor (10/13/24 06:01) Saline Lock (10/13/24 06:01) * Npo Until Passed Bedside Swa (10/13/24 06:01) Nursing Swallow Screen (10/13/24 06:01) Finger(S) (10/13/24 07:23) Po Challenge (10/13/24 11:35) Completed Orders - JACOBO STEPHENSON MD Cbc/Diff (10/13/24 06:01) Ethanol (10/13/24 06:01) Drug Screen, Urine (10/13/24 06:01) CMP (10/13/24 06:01) Ringers Solution, Lacted (Lactated Ringe (10/13/24 06:05) Ondansetron Inj. (Zofran 4mg/2ml Vial) (10/13/24 06:30) Normal Saline 1000ml (0.9% Sodium Chlori (10/13/24 06:45) Chlordiazepoxide Capsule (Librium Capsul (10/13/24 07:25) Gabapentin Capsule (Neurontin Capsule) (10/13/24 07:25) Finger(S) (10/13/24 07:23) Ringers Solution, Lacted (Lactated Ringe (10/13/24 08:15) Folic Acid Inj. (Folic Acid Inj.) (10/13/24 08:15) Thiamine Inj. (Thiamine Inj.) (10/13/24 08:15) Prochlorperazine Inj (Compazine Inj) (10/13/24 08:15) Medications Received in ER Medications (Trade) Dose Ordered Sig/Mary Ellen Route PRN Reason Start Time Stop Time Status Last Admin Dose Admin (Zofran 4mg/2ml vial) 4 mg ONCE ONCE IV 10/13/24 06:30 10/13/24 06:31 DC 10/13/24 06:41 4 MG Sodium Chloride 1,000 ml @ 1,000 mls/hr ONCE ONCE IV 10/13/24 06:45 10/13/24 07:44 DC 10/13/24 06:50 1,000 MLS/HR (Librium capsule) 100 mg ONCE ONCE PO 10/13/24 07:25 10/13/24 07:26 DC 10/13/24 07:29 100 MG (Neurontin capsule) 300 mg ONCE ONCE PO 10/13/24 07:25 10/13/24 07:26 DC 10/13/24 07:29 300 MG (lactated ringers solution) 1,000 ml ONCE ONCE IV 10/13/24 08:15 10/13/24 08:16 DC 10/13/24 08:40 1,000 ML (folic acid inj.) 1 mg ONCE ONCE IV 10/13/24 08:15 10/13/24 08:16 DC 10/13/24 08:40 1 MG (thiamine inj.) 100 mg ONCE ONCE IV 10/13/24 08:15 10/13/24 08:25 DC 10/13/24 08:40 100 MG (Compazine inj) 10 mg ONCE ONCE IV 10/13/24 08:15 10/13/24 08:25 DC 10/13/24 08:40 10 MG Vital Signs 10/13/24 10/13/24 10/13/24 10/13/24 05:57 06:21 06:49 07:43 Temp 97.5 Pulse 89 84 84 Resp 20 20 20 B/P (MAP) 137/100 140/104 (116) 151/113 (126) Pulse Ox 98 98 94 O2 Flow Rate 0 0 0 10/13/24 10/13/24 10/13/24 10/13/24 08:45 09:51 11:00 11:54 Temp 97.5 Pulse 83 76 71 71 Resp 16 12 18 18 B/P (MAP) 155/114 (128) 121/89 (100) 121/86 (98) 121/86 Pulse Ox 96 93 96 96 O2 Flow Rate 0 0 0 Laboratory Tests Test 10/13/24 06:18 10/13/24 06:36 Urine Opiates Screen Negative Urine Methadone Screen Negative Urine Fentanyl Screen Negative Urine Barbiturates Screen Negative Urine Phencyclidine Screen Negative Urine Amphetamines Screen Negative Urine Benzodiazepines Screen Negative Urine Cocaine Screen Negative Urine Cannabinoids Screen Negative Drug Screen Comment White Blood Count 6.5 Red Blood Count 4.33 Hemoglobin 15.1 Hematocrit 43.7 Mean Corpuscular Volume 101.0 H Mean Corpuscular Hemoglobin 34.8 H Mean Corpuscular Hemoglobin Concent 34.4 Red Cell Distribution Width 16.4 H Platelet Count 186 Mean Platelet Volume 8.9 Neutrophils (%) (Auto) 71.4 Lymphocytes (%) (Auto) 21.2 Monocytes (%) (Auto) 6.2 Eosinophils (%) (Auto) 0.2 Basophils (%) (Auto) 1.0 Neutrophils # (Auto) 4.6 Lymphocytes # (Auto) 1.4 Monocytes # (Auto) 0.4 Eosinophils # (Auto) 0.0 Basophils # (Auto) 0.1 CBC Comment Sodium Level 138 Potassium Level 3.7 Chloride Level 98 L Carbon Dioxide Level 17.6 L Anion Gap 22 H Blood Urea Nitrogen 6 L Creatinine 0.88 Estimated GFR/1.73 m2 74 BUN/Creatinine Ratio 6.8 L Glucose Level 123 H Calcium Level 8.9 Total Bilirubin 2.2 H Aspartate Amino Transf (AST/SGOT) 343 H Alanine Aminotransferase (ALT/SGPT) 109 H Alkaline Phosphatase 110 Total Protein 7.7 Albumin 3.7 Globulin 4.0 Albumin/Globulin Ratio 0.9 L Chemistry Comments Ethyl Alcohol Level 62 H Medical Decision Making Findings Differential diagnosis includes but is not limited to: Alcohol withdrawal, alcohol intoxication, dehydration, alcoholic ketoacidosis, electrolyte abnormalities, acute pancreatitis, cholecystitis, gastritis Right 5th finger x-rays, three views, indication: Trauma Independent interpretation: No evidence of fractures or dislocations Laboratory data independent interpretation: CBC: Unremarkable CMP: Bicarb is low 17.6, anion gap 22, serum glucose is unremarkable 123, elevated AST 343, elevated ALT 109 Toxicology: Emergency department course/medical decision-making: Patient's presentation is consistent with mild alcoholic hepatitis and dehydration. Patient is given 2 L of LR. Patient has also given IV Zofran. Patient is still feeling anxious. Patient's blood alcohol level is only 62 however she isn't having significant alcohol withdrawal symptoms. Other than the anxiety. Patient is given Librium 100 mg. Patient is also given Compazine 10 mg IV for continued nausea. Patient is observed for a couple hours. Patient is feeling better and able to eat and drink. Test results, treatment plan and all of the above discussed with the patient. Patient is stable for discharge. There was no evidence of a medical or surgical emergency. Departure Time of Disposition: 08:04 Disposition: 01 HOME / SELF CARE / HOMELESS Impression: Primary Impression: Alcohol withdrawal syndrome Additional Impression: Anxiety Condition: Stable Discharge Instructions: Alcohol Abuse and Dependence Information, Adult, Alcohol Withdrawal Syndrome, Guon-nw-Otre Additional Instructions: RECOMMEND YOU FOLLOW UP WITH YOUR PRIMARY CARE DOCTOR AND ATTEND ALCOHOLICS ANONYMOUS. YOU ABSOLUTELY MUST NOT DRINK WHEN TAKING THE LIBRIUM AND GABAPENTIN. Referrals: [facility] Prescriptions Gabapentin (Gabapentin ER) 300 Mg Tab.er.24h 1 CAP PEG HS, #7 CAP Prov: JACOBO STEPHENSON MD 10/13/24 Chlordiazepoxide Hcl (Librium) 25 Mg Capsule 25 MG PO DIRECTED, #20 CAP 0 Refills TAKE ONE TABLET BY MOUTH 4 TIMES A DAY X2 DAYS THEN TAKE ONE TABLET BY MOUTH 3 TIMES A DAY X2 DAYS THEN TAKE ONE TABLET BY MOUTH 2 TIMES A DAY X2 DAYS THEN TAKE ONE TABLET BY MOUTH DAILY FOR TWO DAYS Prov: JACOBO STEPHENSON MD 10/13/24 Education Educated: Patient Educated regarding: diagnosis, treatment, need for follow up Signature Scribe Signature: No scribe Attestation: No scribe JACOBO STEPHENSON MD Oct 13, 2024 07:50
--- NOTE | 2024-10-13 07:51 | RADIOLOGY REPORT ---
CLINICAL INDICATION: right 5th finger trauma TECHNIQUE: Right DI FINGER(S) Comparison: None FINDINGS/IMPRESSION: : There is no evidence of acute fracture or dislocation. Soft tissues are unremarkable.
[2024-10-13] MEDS ORDERED: CHLO25CA10 PO (08:10)
[2024-10-13] MEDS ORDERED: GABA300T28 PEG (08:10)
[2024-10-13] MEDS: thiamine 100mg/ml 2ml inj. IV ONE (08:40)
[2024-10-13] MEDS: ringers solution, lactated 1000ml IV soln IV ONE (08:40)
[2024-10-13] MEDS: folic acid 1mg/0.2ml inj IV ONE (08:40)
[2024-10-13 11:54] VITALS: BP 121/86; PULSE 71; RESP 18; TEMP 97.5; O2SAT 96
== END 2024-10-13 11:55 | disposition home or self-care (01) ==
LOC: ER 05:55
DX: F10.239 Alcohol dependence with withdrawal, unspecified (principal); F41.9 Anxiety disorder, unspecified; Z88.1 Allergy status to other antibiotic agents; Z88.3 Allergy status to other anti-infective agents; Z88.8 Allergy status to other drugs, medicaments and biological substances; Z90.49 Acquired absence of other specified parts of digestive tract; Z79.899 Other long term (current) drug therapy; Y90.9 Presence of alcohol in blood, level not specified
CPT/HCPCS: 36415; 73140; 80053; 80305; 80320; 85025; 96361; 96374; 96375; 99285; J0780; J2405; J3411; J3490; J7030; J7120

== ENCOUNTER 2024-11-04 09:08 | Emergency (ER) | payer MEDICAID ==
[~2024-11-04] VITALS: Ht 167.6 cm; Wt 97.7 kg
[~2024-11-04 09:08] MED LIST changes: +CHLO25CA10 PO; +GABA300T28 PEG
[2024-11-04] MEDS: ondansetron/PF 4mg/2ml inj IV ONE (11:17)
[2024-11-04] MEDS: normal saline 1000ml 1,000 ML IV ONE (11:18)
[2024-11-04 11:44] LABS: UA COLLECTION TYPE CLN CATCH MIDSTREAM
[2024-11-04 11:56] LABS: MUCUS STRANDS FEW /LPF (Neg); SQUAMOUS EPITHELIAL CELL,UR MODERATE /LPF (FEW)
[2024-11-04 11:57] LABS: AMORPHOUS URATES 4+
[2024-11-04 12:23] LABS: URINE HCG NEGATIVE (NEG)
--- NOTE | 2024-11-04 12:35 | Physician Documentation ---
History of Present Illness ~ Chief Complaint: ETOH Stated Complaint: VOMITING Time Seen by MD: 09:42 Primary Medical Doctor: Gregory HPI 34 year old female here for wanting to detox from alcohol. "Every time I stop drinking I get shaky and feel bad and nauseated." Also thinks she may have a urinary tract infection. Denies fever, cough, diarrhea, chest pain. Tetanus within 5 years?: Yes Medication Reconciliation Allergies: Coded Allergies: fluconazole (Verified Allergy, Severe, 11/04/24) metronidazole (Verified Allergy, Unknown, 07/02/24) Uncoded Allergies: STRAWBERRIES (Allergy, Unknown, 09/21/24) Scheduled Chlordiazepoxide Hcl (Librium), 25 MG PO DIRECTED Folic Acid* (Folic Acid*), 1 TAB PO DAILY Gabapentin (Gabapentin ER), 1 CAP PEG HS Multivitamin with Folic Acid (Thera Tablet), 1 TAB PO DAILY Pantoprazole Sodium (PROTONIX tablet), 40 MG PO DAILY Thiamine HCl (Vitamin B-1), 2 TAB PO DAILY Scheduled PRN ONDANSETRON ODT 4mg tablet (Ondansetron Odt), 1 TAB PO Q6H PRN PRN for nausea/vomiting Propranolol Hcl (Propranolol Hcl), 1 TAB PO DAILY PRN for anxiety Past Medical History Past Medical History: Pancreatitis, Kidney Stones, Chronic Back Pain, Anxiety Past Surgical History: appendectomy Alcohol Use: Alcoholic Drug Use: marijuana Occupation: employed Review of Systems All Other Systems at this time: Reviewed and Negative Physical Exam Vital Signs: RN Vital Signs have been reviewed: Yes, Temperature: 97.6, Source: Temporal, Heart Rate: 92, Respiratory Rate: 18, BP: 137/98, Pulse Oximetry: 97, Weight: 97.730 Oxygen Flow Rate: 0 Physical Exam HEENT: PERRL, moist oral mucosa, EOMI Pulmonary: No respiratory distress MSK: no deformity Skin: w/d/i, no rash Neuro: alert, nonfocal Psych: normal affect Progress Results/Orders Results/Orders Orders - ABHIJEET KEARNS MD Substance Use Navigator (11/04/24 10:05) Completed Orders - ABHIJEET KEARNS MD Normal Saline 1000ml (0.9% Sodium Chlori (11/04/24 11:15) Ondansetron Inj. (Zofran 4mg/2ml Vial) (11/04/24 11:15) Diazepam Tablet (Valium Tablet) (11/04/24 11:15) Hydromorphone 1 Mg/Ml/Pf (Dilaudid Inj.) (11/04/24 11:25) Ua W/Microscopic, Cult If Ind (11/04/24 10:33) Hcg, Ur Ql (11/04/24 11:51) Medications Received in ER Medications (Trade) Dose Ordered Sig/Mary Ellen Route PRN Reason Start Time Stop Time Status Last Admin Dose Admin Sodium Chloride 1,000 ml @ 1,000 mls/hr ONCE ONCE IV 11/04/24 11:15 11/04/24 12:14 DC 11/04/24 11:18 1,000 MLS/HR (Zofran 4mg/2ml vial) 4 mg ONCE ONCE IV 11/04/24 11:15 11/04/24 11:16 DC 11/04/24 11:17 4 MG (Valium tablet) 10 mg ONCE ONCE PO 11/04/24 11:15 11/04/24 11:16 DC 11/04/24 11:18 10 MG (Dilaudid inj.) 1 mg ONCE ONCE IV 11/04/24 11:25 11/04/24 11:26 DC 11/04/24 11:29 1 MG Vital Signs 11/04/24 11/04/24 11/04/24 11/04/24 09:36 09:45 10:50 11:18 Temp 97.6 97.6 Pulse 87 92 Resp 18 16 18 B/P (MAP) 163/97 137/98 (111) Pulse Ox 97 97 O2 Flow Rate 0 11/04/24 11/04/24 11:29 11:38 Resp 18 18 Laboratory Tests Test 11/04/24 10:33 11/04/24 12:01 Urine Specimen Description Cln catch midstream Urine Color [place] Urine Clarity Turbid Urine pH Urine Specific [place] Urine Protein Urine Glucose (UA) Urine Ketones Urine Occult Blood Urine Nitrite Urine Bilirubin Urine Urobilinogen Urine Leukocyte Esterase Urine RBC 3-10 Urine WBC 0-4 Urine Squamous Epithelial Cells Moderate Urine Amorphous Urates 4+ Urine Bacteria 2+ Urine Mucus Few Urine Culture Indicated Not ind Volume Urine Centrifuged 10 ml Urine Comment See note Urine HCG, Qualitative Negative Medical Decision Making Findings 34 year old female with apparent alcohol withdrawal. IVF and benzodiazepine, UA demonstrated no or UTI. Improved on reevaluation, return precautions discussed. Differential Dx:Considerations: Include: Intoxication-Alcohol, Substance abuse disorder, Acute delirium, Alcohol withdrawl syndrom, Encephalopathy Departure Disposition: 01 HOME / SELF CARE / HOMELESS Impression: Primary Impression: Alcohol withdrawal syndrome Discharge Instructions: Alcohol Abuse and Dependence Information, Adult Referrals: NO PRIMARY CARE PROVIDER (PCP) Education Educated: Patient Educated regarding: diagnosis, treatment, prognosis, need for follow up Signature Scribe Signature: . Attestation: . ABHIJEET KEARNS MD Nov 04, 2024 12:35
[2024-11-04 12:39] VITALS: BP 141/99; PULSE 90; RESP 18; TEMP 97.6; O2SAT 97
[2024-11-05] MEDS ORDERED: PROC-8 PO (16:44)
== END 2024-11-04 13:06 | disposition home or self-care (01) ==
LOC: ER 09:08
DX: F10.239 Alcohol dependence with withdrawal, unspecified (principal); F12.90 Cannabis use, unspecified, uncomplicated; G89.29 Other chronic pain; F41.9 Anxiety disorder, unspecified; Z88.1 Allergy status to other antibiotic agents; Z88.3 Allergy status to other anti-infective agents; Z87.442 Personal history of urinary calculi; Z90.49 Acquired absence of other specified parts of digestive tract; Y90.9 Presence of alcohol in blood, level not specified
CPT/HCPCS: 81001; 81025; 96361; 96374; 96375; 99284; J1171; J2405; J7030

== ENCOUNTER 2024-11-05 10:49 | Emergency (ER) | payer MEDICAID ==
[~2024-11-05] VITALS: Ht 167.6 cm; Wt 96.0 kg
[2024-11-05 11:51] LABS: MEAN PLATELET VOLUME 10.3 FL (7.4-10.4); RED CELL DISTRIBUTION WIDTH 17.3 % (11.5-14.5)
--- NOTE | 2024-11-05 12:03 | Physician Documentation ---
History of Present Illness Chief Complaint: Vomiting Stated Complaint: VOMITING Time Seen by MD: 11:57 Primary Medical Doctor: Gregory DEAL This is a 34-year-old female who presents for evaluation of right-sided abdominal pain, nausea, vomiting that has been present for the last two days. Unable to keep anything down. She has been seen yesterday in our emergency department, received fluids, received IV antiemetics with a marked improvement. However shortly after discharge she had wanted to pecan. No palliating or aggravating factors for abdominal pain. No known infectious exposure. No trigger provocation. Status post appendectomy. LMP: Two weeks ago a.m. She used to drink half a bottle of liquor a day, last drink was 48 hours ago. States she has already gone through withdrawal and shakes. Medication Reconciliation Allergies: Coded Allergies: fluconazole (Verified Allergy, Severe, 11/04/24) metronidazole (Verified Allergy, Unknown, 07/02/24) Uncoded Allergies: STRAWBERRIES (Allergy, Unknown, 09/21/24) Scheduled Chlordiazepoxide Hcl (Librium), 25 MG PO DIRECTED Folic Acid* (Folic Acid*), 1 TAB PO DAILY Gabapentin (Gabapentin ER), 1 CAP PEG HS Multivitamin with Folic Acid (Thera Tablet), 1 TAB PO DAILY Pantoprazole Sodium (PROTONIX tablet), 40 MG PO DAILY Thiamine HCl (Vitamin B-1), 2 TAB PO DAILY Scheduled PRN ONDANSETRON ODT 4mg tablet (Ondansetron Odt), 1 TAB PO Q6H PRN PRN for nausea/vomiting Propranolol Hcl (Propranolol Hcl), 1 TAB PO DAILY PRN for anxiety Past Medical History Past Medical History: Pancreatitis, Kidney Stones, Chronic Back Pain, Anxiety Past Surgical History: appendectomy Alcohol Use: Alcoholic Drug Use: marijuana Occupation: employed Review of Systems ROS 10 point review of systems was performed and unless noted above in HPI is negative for acute process/complaint. Physical Exam Vital Signs: Temperature: 97.9, Source: Temporal, Heart Rate: 113, Respiratory Rate: 16, BP: 159/106, Pulse Oximetry: 97, Weight: 96.000 Oxygen Flow Rate: 0 Physical Exam GENERAL: Awake, alert, oriented, GCS 15, no apparent distress, non-toxic appearing, answers questions, follows commands appropriately. Examined in bed 4. HEENT: Atraumatic, normocephalic, pupils equal, extraocular muscles intact, sclerae anicteric, mucus membranes moist, oropharynx is clear, no stridor. NECK: supple, full active range of motion, trachea midline, no thyromegaly, no lymphadenopathy, no JVD. CARDIOVASCULAR: Tachycardic and regular rate/rhythm, no murmurs/gallops/rubs, Pulses are 2+ in all extremities and symmetric. Capillary refill less than 2 seconds. PULMONARY: Nonlabored, good air movement ,no respiratory distress, speaking in full sentences, clear to auscultation bilaterally, no wheezing, no ronchi, no rales, no accessory muscle use. GASTROINTESTINAL: Soft, right upper quadrant tenderness to palpation without guarding or rebound, questionable Perez's sign, non-distended, normal active bowel sounds, no organomegaly, no pulsatile masses, no CVA tenderness. NEUROLOGIC: Lucid with normal mental status. Normal facial symmetry. Moves all extremities symmetrically and with purpose. No truncal ataxia. Speech is fluid without evidence of dysarthria or aphasia, no focal deficits appreciated. MUSCULOSKELETAL: There is full range of motion of all extremities. There is no joint pain or joint swelling or joint erythema. There is no muscle pain or tenderness or swelling. EXTREMITIES: warm, well-perfused, no cyanosis, no clubbing, no edema, no acute deformities. Skin: warm, dry, no rashes or lesions, no jaundice, no petechiae orpurpura. No ecchymosis. PSYCHIATRIC: Normal affect, normal insight, normal concentration. Focused exam: [] Progress Results/Orders Results/Orders Orders - CHRIS FELIPE DO Urinalysis, Cult If Indicated (11/05/24 11:07) Hcg, Ur Ql (11/05/24 11:07) BMP (11/05/24 11:07) Lipase (11/05/24 11:07) CMP (11/05/24 11:07) Completed Orders - CHRIS FELIPE DO Cbc/Diff (11/05/24 11:07) Vital Signs 11/05/24 10:56 Temp 97.9 Pulse 113 Resp 16 B/P (MAP) 159/106 Pulse Ox 97 O2 Flow Rate 0 Laboratory Tests Test 11/05/24 11:27 White Blood Count 4.6 Red Blood Count 4.33 Hemoglobin 15.4 Hematocrit 45.6 H Mean Corpuscular Volume 105.4 H Mean Corpuscular Hemoglobin 35.6 H Mean Corpuscular Hemoglobin Concent 33.8 Red Cell Distribution Width 17.3 H Platelet Count 121 L Mean Platelet Volume 10.3 Neutrophils (%) (Auto) 70.5 Lymphocytes (%) (Auto) 19.4 L Monocytes (%) (Auto) 9.1 Eosinophils (%) (Auto) 0.2 Basophils (%) (Auto) 0.8 Neutrophils # (Auto) 3.2 Lymphocytes # (Auto) 0.9 L Monocytes # (Auto) 0.4 Eosinophils # (Auto) 0.0 Basophils # (Auto) 0.0 CBC Comment Chemistry Comments Medical Decision Making Findings Facility Status: ED Holds, [facility] process The plan was discussed with the patient, who demonstrates clear understanding of the plan and is in agreement with the plan unless otherwise noted in the chart. All questions have been answered, all concerns were addressed unless otherwise documented. I was available throughout their ED stay for frequent reassessment and questions. Differential Diagnoses (considered and possible or likely): [Differential diagnosis considered includes acute appendicitis, acute cholecystitis, pancreatitis, gastritis, PUD, diverticulitis, mesenteric ischemia, abdominal aortic aneurysm, bowel obstruction, enteritis, colitis, fecal impaction, volvulus, IBS, inflammatory bowel disease, specific food intolerance, peritonitis, perforated viscous, malignancy, UTI, abscess, and abdominal pain NOS. Pelvic source of pain was also considered including endometritis, dysmenorrhea, ovarian cyst, ovarian torsion, PID, TOA, cervicitis, vaginitis, or uterine fibroid. History, physical exam, and workup exclude many of the more serious causes listed above. Her picture could be complicated in addition to all of the by alcohol withdrawal, simple versus complicated with a variable seizures, as well as alcoholic ketoacidosis] ??Differential Diagnoses (considered and unlikely, not requiring evaluation currently): [No evidence trauma] MDM Data Please see HPI for the following: Independent Historians and external Records Review. Historian: [Patient] Independent Historians: ?[Record review] Medication Management: [Reviewed medication list] Social History and determinants: [Reviewed] Please see the body of the note for the following: Any independent interpretations of ECG, imaging studies. All vitals signs/haemodynamics, ordered tests were independently reviewed and interpreted by myself. Nursing triage complaint and vitals reviewed, additional nursing notes were reviewed as available and I agree unless otherwise noted or documented in contradiction in the chart Vital Signs: Independently reviewed Labs: Independently interpreted Imaging: Independently interpreted Old Medical Records: Independently reviewed, see HPI for relevant summary and information Pulse Oximetry: [97%] interpreted as [normal on room air] by me [Management Scientist: Tachycardic Rate, Regular rhythm, no ectopy, sinus tachycardia. reviewed and interpreted by me] Additionally notably showing: [I have extracted. The patient is initially tachycardic, improved her pain management and fluids. No evidence of hypotension. Laboratory studies show macrocytosis consistent with a alcoholism. Slightly decreased platelets. Normal white count. Log gas is unremarkable not consistent with a alcoholic ketoacidosis. Chemistry shows no acidosis. Slightly elevated glucose. Item number read of the door repeated, transaminitis and alcoholic pattern. Lipase is normal. UA shows hematuria areas no UTI. Ultrasound of the abdomen showed echogenic liver. CT of the abdomen showed no acute abnormality.] Tests considered but not ordered include: [Not applicable, exhaustive workup was obtained] Social Determinants of Health Impact: Patient was evaluated in [facility] [place] to healthcare due to below par ratio of patient to medical providers. [] Comorbid Conditions Impacting Present Evaluation and Care/Treatment: [Alcoholism] Management Discussions with other Healthcare Providers: [None] Treatment and Disposition Medication Management (Given or considered): [Pain medication, foods, antiemetics.] See EMR for details Consideration for Hospitalization/Escalation/Deescalation of Care: Admission for observation has been considered, [however the patient is able to tolerate p.o., their symptoms are controlled, they are able to rely on oral medications, and their chief complaint/diagnosis can be managed on outpatient basis.] ?ED Course:?[No clinical deterioration. No vomiting here.] ?Shared decision making:?[Patient is hemodynamically stable for discharge home with follow with their primary care provider. [ ] Specific and cautious return precautions provided and discussed with full understanding. Any incidental findings were also discussed and follow up recommendations given. [] All questions answered. Patient/family were able to verbalize back return precautions. Patient/family agree to plan. Copies of imaging and laboratory studies were provided.] Code status:?FULL Please see the full Electronic Medical Record for full details of nursing documentation, medications list, other records of complete past medical history and conditions, vital signs, laboratory studies, and any radiologic study interpretations by radiologists. Portions of this note were completed using Slidely dictation software and as a result there may exist minor errors in spelling. I have reviewed elements of past family and social history and agree as included in note. Departure Disposition: HOME / SELF CARE / HOMELESS Impression: Primary Impression: Abdominal pain Additional Impressions: Alcohol use disorder Alcohol withdrawal syndrome Nausea and vomiting Condition: Stable Discharge Instructions: Nausea and Vomiting, Adult Referrals: NO PRIMARY CARE PROVIDER (PCP) Prescriptions Prochlorperazine Maleate (Compazine) 10 Mg Tablet 1 TAB PO Q6H for 7 Days, #28 TAB 0 Refills Prov: CHRIS FELIPE DO 11/05/24 Education Educated: Patient Educated regarding: diagnosis, treatment, prognosis, need for follow up Signature Scribe Signature: No scribe Attestation: This note accurately reflects clinical decisions, work performed by myself, DO MATTEO Kitchen NICHOLAS M DO Nov 05, 2024 12:03
[2024-11-05 12:15] LABS: TOTAL CARBON DIOXIDE 23.7 MMOL/L (24-32)
[2024-11-05 12:29] LABS: CREATININE 0.89 MG/DL (0.40-0.90); eCRCL 83 ML/MIN; eGFR 73 ML/MIN
[2024-11-05] MEDS: ondansetron 4mg rapidly disintigrating tab PO ONE (12:36)
[2024-11-05] MEDS: normal saline 1000ml 1,000 ML IV ONE (12:38)
[2024-11-05] MEDS: morphine 4 MG/ML inj SYRINge IV ONE (12:38)
[2024-11-05 12:40] LABS: OXYGEN SATURATION (MIXED VEN) 69.4 % (60-80); PO2 MIXED VENOUS (TEMP COR) 34.7 mmHg (35-46)
--- NOTE | 2024-11-05 13:10 | RADIOLOGY REPORT ---
Technique: Real-time ultrasound imaging of the abdomen was performed with grayscale and color Doppler. Indication: Right upper quadrant pain Comparison: US ULTRASOUND OF ABDOMEN on DOS: 09/21/24 Findings: Liver measures 14.6 cm. It is increased in echogenicity and echotexture without focal mass. Portal vein is normal in caliber and demonstrates normal hepatopetal flow. Gallbladder demonstrates no evidence for cholelithiasis. There is no pericholecystic fluid. The wall thickness is normal. The common bile duct measures 2 mm. No intrahepatic biliary ductal dilatation. The right kidney measures 10 cm. No hydronephrosis or sonographic evidence of nephrolithiasis. The visualized portion of the pancreas is unremarkable. The visualized portion of the IVC is unremarkable. Impression: No sonographic evidence for cholelithiasis. Echogenic liver which can be seen with hepatic steatosis, cirrhosis.
[2024-11-05] MEDS ORDERED: iohexol 300mg/ml 100ml inj. ONE (13:34)
[2024-11-05 13:53] LABS: LEUKOCYTE ESTERASE ,URINE NEGATIVE (Neg); OCCULT BLOOD,URINE MODERATE (Neg)
[2024-11-05 13:54] LABS: NITRITES, URINE NEGATIVE (Neg); UA COLLECTION TYPE CLN CATCH MIDSTREAM
[2024-11-05 13:56] LABS: URINE HCG NEGATIVE (NEG)
[2024-11-05 13:59] LABS: MUCUS STRANDS MANY /LPF (Neg); SQUAMOUS EPITHELIAL CELL,UR MODERATE /LPF (FEW)
[2024-11-05] MEDS: mag hydrox/Alum hydrox/simeth 30ml oral suspension PO ONE (14:53)
--- NOTE | 2024-11-05 15:03 | RADIOLOGY REPORT ---
CLINICAL HISTORY: Right-sided abdominal pain, nausea vomiting TECHNIQUE: CT of the abdomen and pelvis was performed with IV contrast. This exam was performed according to our departmental dose optimization program. Up-to-date CT equipment and radiation dose reduction techniques are utilized as appropriate. CTDI 27.5 DLP 1457.0 COMPARISON: CT CT ABDOMEN PELVIS W/ IV CONTRAST on DOS: 09/21/24, CT CT ABDOMEN PELVIS W/ IV CONTRAST on DOS: 07/02/24, CT CT ABDOMEN PELVIS on DOS: 10/13/23, CT CT ABDOMEN PELVIS on DOS: 08/09/23 FINDINGS: Abdomen/Pelvis: The kidneys, adrenal glands, pancreas, gallbladder, uteres, spleen, and bladder are unremarkable. There is diffuse hepatic steatosis. The abdominal aorta is normal in course and caliber. There are no significant atherosclerotic calcifications. There is no free intraperitoneal air or fluid. There is no enlarged abdominal or pelvic lymph node. There is no bowel wall thickening or dilatation. The appendix is not seen with no inflammation in its expected location. There is minimal sigmoid colon diverticulosis. Other: The imaged lower thorax demonstates minimal atelectatic changes at both bases. No acute osseous abnormality is evident. IMPRESSION: No acute abnormality in the abdomen or pelvis. Diffuse hepatic steatosis. Minimal colonic diverticulosis.
[2024-11-05] MEDS ORDERED: PROC-8 PO (16:44)
[2024-11-05 17:23] VITALS: BP 130/95; PULSE 112; RESP 16; TEMP 98; O2SAT 98
== END 2024-11-05 17:24 | disposition home or self-care (01) ==
LOC: ER 10:49
DX: R10.11 Right upper quadrant pain (principal); F10.239 Alcohol dependence with withdrawal, unspecified; F41.9 Anxiety disorder, unspecified; Z88.1 Allergy status to other antibiotic agents; Z88.3 Allergy status to other anti-infective agents; Z88.8 Allergy status to other drugs, medicaments and biological substances; Y90.9 Presence of alcohol in blood, level not specified
CPT/HCPCS: 36415; 74177; 76700; 80053; 81001; 81025; 82810; 83690; 85025; 96361; 96374; 96375; 99285; J0780; J2270; J7030; Q9967

== ENCOUNTER 2025-01-02 12:33 | Emergency (ER) | payer MEDICAID ==
[~2025-01-02] VITALS: Ht 165.1 cm; Wt 90.9 kg
[~2025-01-02 12:33] MED LIST changes: +PROC-8 PO
[2025-01-02 12:36] VITALS: TEMP 97.2
[2025-01-02 13:01] LABS: MEAN PLATELET VOLUME 10.0 FL (7.4-10.4); RED CELL DISTRIBUTION WIDTH 13.5 % (11.5-14.5)
[2025-01-02 13:15] LABS: CREATININE 0.76 MG/DL (0.40-0.90); TOTAL CARBON DIOXIDE 25.7 MMOL/L (24-32); eCRCL 94 ML/MIN; eGFR 87 ML/MIN
[2025-01-02] MEDS: normal saline 1000ml 1,000 ML IV ONE (13:57)
[2025-01-02 14:01] LABS: URINE HCG NEGATIVE (NEG)
[2025-01-02 14:13] LABS: LEUKOCYTE ESTERASE ,URINE NEGATIVE (Neg); NITRITES, URINE POSITIVE (Neg); OCCULT BLOOD,URINE MODERATE (Neg)
[2025-01-02 14:18] LABS: UA COLLECTION TYPE URINAL
[2025-01-02 14:23] LABS: MUCUS STRANDS FEW /LPF (Neg); SQUAMOUS EPITHELIAL CELL,UR MODERATE /LPF (FEW)
[2025-01-02 14:24] LABS: AMORPHOUS URATES 2+
[2025-01-02] MEDS: sulfamethoxazole/trimethoprim DS (800/160mg) tablet PO ONE (15:16)
[2025-01-02] MEDS: mag hydrox/Alum hydrox/simeth 30ml oral suspension PO ONE (15:20)
[2025-01-02] MEDS: LIDOcaine 2% Viscous 15ml cup MM PRN (15:20)
[2025-01-02] MEDS ORDERED: SULF1TAB49 PO (15:41)
--- NOTE | 2025-01-02 15:41 | Physician Documentation ---
History of Present Illness Chief Complaint: Abdominal Pain Stated Complaint: ALCOHOL POISONING Time Seen by MD: 13:06 Primary Medical Doctor: Gregory DEAL 34 year old female with history of alcoholism reports that she experiencing epigastric burning abdominal pain and is concerned for pancreatitis which she has had before. Denies back pain, fevers, N/V/D, urinary symptoms. Has never had a seizure before from withdrawal and last alcohol intake was this morning. Medication Reconciliation Allergies: Coded Allergies: fluconazole (Verified Allergy, Severe, 01/02/25) metronidazole (Verified Allergy, Unknown, 01/02/25) Uncoded Allergies: STRAWBERRIES (Allergy, Unknown, 09/21/24) Scheduled Chlordiazepoxide Hcl (Librium), 25 MG PO DIRECTED Folic Acid* (Folic Acid*), 1 TAB PO DAILY Gabapentin (Gabapentin ER), 1 CAP PEG HS Multivitamin with Folic Acid (Thera Tablet), 1 TAB PO DAILY Pantoprazole Sodium (PROTONIX tablet), 40 MG PO DAILY Prochlorperazine Maleate (Compazine), 1 TAB PO Q6H Sulfamethoxazole/Trimethoprim (Bactrim Ds Tablet), 1 TAB PO Q12H Thiamine HCl (Vitamin B-1), 2 TAB PO DAILY Scheduled PRN ONDANSETRON ODT 4mg tablet (Ondansetron Odt), 1 TAB PO Q6H PRN PRN for nausea/vomiting Propranolol Hcl (Propranolol Hcl), 1 TAB PO DAILY PRN for anxiety Past Medical History Past Medical History: Pancreatitis, Kidney Stones, Chronic Back Pain, Anxiety Past Surgical History: appendectomy Alcohol Use: Alcoholic Drug Use: marijuana Occupation: employed Review of Systems All Other Systems at this time: Reviewed and Negative Physical Exam Vital Signs: RN Vital Signs have been reviewed: Yes, Temperature: 97.2, Source: Temporal, Heart Rate: 96, Respiratory Rate: 20, BP: 136/98, Pulse Oximetry: 96, Weight: 90.900 Oxygen Flow Rate: 0 Physical Exam Gen: no distress HEENT: NCAT, EOMI, PERRL, MMM Pulm: no distress Cardiac: deferred Abdomen: soft, NT, ND MSK: no deformity Neuro: nonfocal Skin: w/d/i Psych: unremarkable Progress Results/Orders Results/Orders Orders - ABHIJEET KEARNS MD Cult Urine + [place] (01/02/25 14:23) Lidocaine 2% Viscous (Xylocaine 2% Visco (01/02/25 14:45) Completed Orders - ABHIJEET KEARNS MD Hcg, Ur Ql (01/02/25 12:43) Cbc/Diff (01/02/25 12:43) BMP (01/02/25 12:43) Lipase (01/02/25 12:43) CMP (01/02/25 12:43) Normal Saline 1000ml (0.9% Sodium Chlori (01/02/25 13:15) Ua W/Microscopic, Cult If Ind (01/02/25 13:42) Pantoprazole 40mg Iv (Protonix 40mg Iv) (01/02/25 14:45) Mag & Alum Hydrox/Simeth Susp (Maalox Or (01/02/25 14:45) Sulfamethox/Trimetho. Ds Tab (Septra Ds (01/02/25 14:55) Pantoprazole 40mg Iv (Protonix 40mg Iv) (01/02/25 14:45) Medications Received in ER Medications (Trade) Dose Ordered Sig/Mary Ellen Route PRN Reason Start Time Stop Time Status Last Admin Dose Admin Sodium Chloride 1,000 ml @ 1,000 mls/hr ONCE ONCE IV 01/02/25 13:15 01/02/25 14:14 DC 01/02/25 13:57 1,000 MLS/HR (Maalox oral suspension) 30 ml ONCE ONCE PO 01/02/25 14:45 01/02/25 14:46 DC 01/02/25 15:20 30 ML (Xylocaine 2% Viscous 15mL cup) 15 ml ONCE PRN MM sore throat 01/02/25 14:45 01/02/25 15:20 15 ML (Septra DS tab) 1 tab ONCE ONCE PO 01/02/25 14:55 01/02/25 14:56 DC 01/02/25 15:16 1 TAB (Protonix 40mg IV) 40 mg ONCE ONCE IV 01/02/25 14:45 01/02/25 14:56 DC 01/02/25 15:17 40 MG Vital Signs 01/02/25 12:36 Temp 97.2 Pulse 96 Resp 20 B/P (MAP) 136/98 Pulse Ox 96 O2 Flow Rate 0 Laboratory Tests Test 01/02/25 12:52 01/02/25 13:42 White Blood Count 3.9 L Red Blood Count 4.61 Hemoglobin 15.8 Hematocrit 46.6 H Mean Corpuscular Volume 101.0 H Mean Corpuscular Hemoglobin 34.3 H Mean Corpuscular Hemoglobin Concent 34.0 Red Cell Distribution Width 13.5 Platelet Count 157 Mean Platelet Volume 10.0 Neutrophils (%) (Auto) 49.2 Lymphocytes (%) (Auto) 41.1 Monocytes (%) (Auto) 8.0 Eosinophils (%) (Auto) 0.5 Basophils (%) (Auto) 1.2 H Neutrophils # (Auto) 1.9 Lymphocytes # (Auto) 1.6 Monocytes # (Auto) 0.3 Eosinophils # (Auto) 0.0 Basophils # (Auto) 0.0 CBC Comment Sodium Level 141 Potassium Level 3.6 Chloride Level 99 Carbon Dioxide Level 25.7 Anion Gap 16 Blood Urea Nitrogen 7 Creatinine 0.76 Estimated GFR/1.73 m2 87 BUN/Creatinine Ratio 9.2 L Glucose Level 154 H Calcium Level 8.5 Total Bilirubin 0.7 Aspartate Amino Transf (AST/SGOT) 192 H Alanine Aminotransferase (ALT/SGPT) 105 H Alkaline Phosphatase 106 Total Protein 7.9 Albumin 4.1 Globulin 3.8 Albumin/Globulin Ratio 1.1 Lipase 25 Chemistry Comments Urine Specimen Description Urinal Urine Color Yellow Urine Clarity Cloudy Urine pH 6.0 Urine Specific Allen >=1.030 Urine Protein 100 H Urine Glucose (UA) 100 H Urine Ketones 40 H Urine Occult Blood Moderate H Urine Nitrite Positive H Urine Bilirubin Moderate Urine Urobilinogen 1.0 Urine Leukocyte Esterase Negative Urine RBC 0-2 Urine WBC 0-4 Urine Squamous Epithelial Cells Moderate Urine Amorphous Urates 2+ Urine Bacteria 2+ Urine Mucus Few Urine Culture Indicated Indicated Volume Urine Centrifuged 4 ml Urine HCG, Qualitative Negative Urine Comment Low volume Microbiology Date/Time Source Procedure Growth Status 01/02/25 14:23 Urine Urinal (Er Only) Urine Culture - Preliminary Culture received. Resulted Medical Decision Making Additional information obtaine: N/A Findings 34 year old female with epigastric pain as above. Workup was largely benign other than a transaminitis/acute alcoholic hepatitis as well as a UTI and I believe she is suffering from gastritis/dyspepsia symptoms. Provided IVF, PPI, GI cocktail, Abx. Improved on reevaluation, will discharge with return precautions. Differential Dx:Considerations: Other Additional Comments Ddxx = alcoholic hepatitis, pancreatitis, gastritis/esophagitis, UTI, pyelonephritis, PUD. Departure Disposition: HOME / SELF CARE / HOMELESS Impression: Primary Impression: Alcoholic hepatitis Additional Impressions: Gastritis UTI (urinary tract infection) Condition: Stable Discharge Instructions: Gastritis, Adult Referrals: NO PRIMARY CARE PROVIDER (PCP) Prescriptions Sulfamethoxazole/Trimethoprim (Bactrim Ds Tablet) 800 Mg-160 Mg Tablet 1 TAB PO Q12H for 7 Days, #14 TAB Prov: ABHIJEET KEARNS MD 01/02/25 Education Educated: Patient Educated regarding: diagnosis, treatment, prognosis, need for follow up Signature Scribe Signature: . Attestation: . ABHIJEET KEARNS MD Jan 02, 2025 15:41
[2025-01-02 16:26] VITALS: BP 124/84; PULSE 81; RESP 15; O2SAT 96
[2025-01-03] MEDS ORDERED: CHLO25CA10 PO (02:05)
[2025-01-03] MEDS ORDERED: ONDA-243 PO (02:08)
== END 2025-01-02 16:18 | disposition home or self-care (01) ==
LOC: ER 12:34
DX: K70.10 Alcoholic hepatitis without ascites (principal); K29.70 Gastritis, unspecified, without bleeding; N39.0 Urinary tract infection, site not specified; F41.9 Anxiety disorder, unspecified; F10.20 Alcohol dependence, uncomplicated; F12.90 Cannabis use, unspecified, uncomplicated; Z88.1 Allergy status to other antibiotic agents; Z88.3 Allergy status to other anti-infective agents; Z88.8 Allergy status to other drugs, medicaments and biological substances; Z90.49 Acquired absence of other specified parts of digestive tract; Z91.018 Allergy to other foods
CPT/HCPCS: 36415; 80053; 81001; 81025; 83690; 85025; 87088; 96361; 96374; 99284; J2470; J7030

== ENCOUNTER 2025-01-02 23:45 | Emergency (ER) | payer MEDICAID ==
[~2025-01-02] VITALS: Ht 165.1 cm; Wt 93.5 kg
[~2025-01-02 23:45] MED LIST changes: +SULF1TAB49 PO
--- NOTE | 2025-01-03 00:39 | Physician Documentation ---
History of Present Illness General Chief Complaint: ETOH Withdrawl Stated Complaint: VOMITING Time Seen by MD: 00:39 Primary Medical Doctor: Gregory History of Present Illness Initial Comments The patient complains of nausea and vomiting patient states she is trying to detox from alcohol to her last drink this morning and was seen in the emergency department patient was discharged with a Librium prescription 25 mg of Librium she states it has not helped she is complaining of anxiety and tremulousness. Patient denies any fevers or chills. The patient is also complaining of some right sided thoracic lower chest wall pain. The patient is symptoms are moderate and persistent. Medication Reconciliation Allergies: Coded Allergies: fluconazole (Verified Allergy, Severe, 01/02/25) metronidazole (Verified Allergy, Unknown, 01/02/25) Uncoded Allergies: STRAWBERRIES (Allergy, Unknown, 09/21/24) Scheduled Chlordiazepoxide Hcl (Librium), 25 MG PO DIRECTED Chlordiazepoxide Hcl (Librium), 25 MG PO DIRECTED Folic Acid* (Folic Acid*), 1 TAB PO DAILY Gabapentin (Gabapentin ER), 1 CAP PEG HS Multivitamin with Folic Acid (Thera Tablet), 1 TAB PO DAILY Pantoprazole Sodium (PROTONIX tablet), 40 MG PO DAILY Prochlorperazine Maleate (Compazine), 1 TAB PO Q6H Sulfamethoxazole/Trimethoprim (Bactrim Ds Tablet), 1 TAB PO Q12H Thiamine HCl (Vitamin B-1), 2 TAB PO DAILY Scheduled PRN ONDANSETRON ODT 4mg tablet (Ondansetron Odt), 1 TAB PO Q6H PRN PRN for nausea/vomiting ONDANSETRON ODT 4mg tablet (Ondansetron Odt), 1 TABLET PO Q6H PRN for nausea/vomiting Propranolol Hcl (Propranolol Hcl), 1 TAB PO DAILY PRN for anxiety Past Medical History Past Medical History: Pancreatitis, Kidney Stones, Chronic Back Pain, Anxiety Past Surgical History: appendectomy Smoking: Non-Smoker Alcohol Use: Alcoholic Drug Use: marijuana Occupation: employed Review of Systems All Other Systems at this time: Reviewed and Negative Physical Exam Physical Exam Vital Signs: Temperature: 97.8, Source: Temporal, Heart Rate: 93, Respiratory Rate: 18, BP: 152/108, Pulse Oximetry: 98, Weight: 93.500 Physical Exam VITALS: Reviewed and as above. GENERAL: Alert, tremulous HEENT: Normocephalic, atraumatic, PERRL, EOMI, dry mucosa, no erythema RESPIRATORY: Lungs clear, normal breath sounds, no respiratory distress. CHEST: No accessory muscle use, no retractions CV: Regular rate, rhythm, no edema, no murmur, No: JVD GI: Soft, non-tender, bowels sounds present, no rebound, guarding, or rigidity BACK: No CVA tenderness, or swelling MUSCULOSKELETAL: No deformities, no edema SKIN: Warm and dry, no rash NEURO: Oriented x4, No motor or sensory deficit PSYCH: Anxious slight psychomotor agitation Progress Results/Orders Results/Orders Completed Orders - OHLADEN,LEXII Yeung MD Chlordiazepoxide Capsule (Librium Capsul (01/03/25 00:45) Ondansetron Disint. Tablet (Zofran Odt T (01/03/25 00:45) Medications Received in ER Medications (Trade) Dose Ordered Sig/Mary Ellen Route PRN Reason Start Time Stop Time Status Last Admin Dose Admin (Librium capsule) 100 mg ONCE ONCE PO 01/03/25 00:45 01/03/25 00:50 DC 01/03/25 00:54 100 MG (Zofran ODT tablet) 4 mg ONCE ONCE PO 01/03/25 00:45 01/03/25 00:46 DC 01/03/25 00:54 4 MG Vital Signs 01/03/25 01/03/25 01/03/25 01/03/25 00:20 00:54 00:57 00:57 Temp 97.8 97.8 Pulse 93 80 Resp 18 16 16 B/P (MAP) 152/108 143/113 (123) Pulse Ox 98 99 01/03/25 02:30 Temp 97.8 B/P (MAP) Medical Decision Making Additional information obtaine: old records Findings The patient with the ETOH withdrawal the patient was given a dose of Librium here of 100 mg with improvement of her symptoms, patient has been taking 25 mg of Librium at home and had no response. The patient has been placed on a Librium taper the patient has been advised to follow up as an outpatient and not to drink alcohol if she is utilizing Librium. Prior hospitalizations has been reviewed. The patient's pulse oximetry was interpreted as normal and adequate. The patient's director of cardiac rehabilitation was interpreted as a sinus rhythm. Differential Diagnosis Alcohol withdrawal, alcohol intoxication, dehydration Departure Disposition: HOME / SELF CARE / HOMELESS Impression: Primary Impression: Alcohol withdrawal syndrome Qualified Codes: F10.930 - Alcohol use, unspecified with withdrawal, uncomplicated Discharge Instructions: Alcohol Withdrawal Syndrome, [id number] Referrals: NO PRIMARY CARE PROVIDER (PCP) Prescriptions ONDANSETRON ODT 4mg tablet (ONDANSETRON ODT) 4 Mg Tab.rapdis 1 TABLET PO Q6H PRN for nausea/vomiting, #12 TABLET Prov: LEXII CUEVAS MD 01/03/25 Chlordiazepoxide Hcl (Librium) 25 Mg Capsule 25 MG PO DIRECTED, #56 CAP 0 Refills 4 caps tid x 2 days then 3 caps tid x 2 days then 2 cap tid x 2 days then 1 cap tid x 2 days then 1 cap bid x2 days then 1 cap a day x 2 days Prov: LEXII CUEVAS MD 01/03/25 Signature Scribe Signature: No scribe Attestation: The note accurately reflects work and decisions made by me.Lexii Cuevas MD 01/03/25 04:27 LEXII CUEVAS MD Jan 03, 2025 00:39
[2025-01-03] MEDS: ondansetron 4mg rapidly disintigrating tab PO ONE (00:54)
[2025-01-03 00:57] VITALS: BP 143/113; PULSE 80; RESP 16; O2SAT 99
[2025-01-03] MEDS ORDERED: CHLO25CA10 PO (02:05)
[2025-01-03] MEDS ORDERED: ONDA-243 PO (02:08)
[2025-01-03 02:30] VITALS: TEMP 97.8
== END 2025-01-03 02:37 | disposition home or self-care (01) ==
LOC: ER 23:45
DX: F10.239 Alcohol dependence with withdrawal, unspecified (principal); F12.90 Cannabis use, unspecified, uncomplicated; F41.9 Anxiety disorder, unspecified; G89.29 Other chronic pain; Z88.3 Allergy status to other anti-infective agents; Z88.1 Allergy status to other antibiotic agents; Z87.442 Personal history of urinary calculi; Z87.19 Personal history of other diseases of the digestive system; Z90.49 Acquired absence of other specified parts of digestive tract; Z79.899 Other long term (current) drug therapy; Y90.9 Presence of alcohol in blood, level not specified
CPT/HCPCS: 99283